=== PATIENT | male | born 1935 | race Caucasian/White ===

== ENCOUNTER 2016-05-27 03:43 | Inpatient (IN) | payer BC ==
--- NOTE | ~2016-05-27 | CN ---
Consultation Report [facility] [address] [facility] [place]. [address] NAME: VALENTE NAVA : 36 STATUS : ADM [facility]#: [id number] AGE: 80 ADM/REG DATE : 05/27/16 MR#: [id number] REPORT SERV DATE: 06/01/16 DICTATED BY: RAJI ZAPATA DATE: 06/01/16 REPORT STATUS : Draft TRANSCRIBED BY: NIDHI DATE: 06/01/16 DATE OF CONSULTATION: 06/01/2016 REFERRING PHYSICIAN: Roni Broussard M.D. REASON FOR THE VISIT: Heart failure. HISTORY OF PRESENT ILLNESS: Mr. Nava is a 80-year-old patient who is a long-time patient in our group for chronic atrial fibrillation and diastolic heart failure. He had a failed cardioversion within the last year or two. He is medically managed with Xarelto. Past ejection fractions have for the most part been within normal limits. He has presented to [facility] now with respiratory failure. He has pneumonia. He is on the ventilator, but he is awake. Echocardiogram performed this admission demonstrates ejection fraction 35%, which is new for him. PAST MEDICAL HISTORY: 1. Chronic diastolic heart failure. 2. Permanent atrial fibrillation. 3. History of COPD. 4. History of hyponatremia. 5. Low back pain. SOCIAL HISTORY: He is a nonsmoker. HOME MEDICATIONS: 1. Albuterol inhaler. 2. Cartia 240 mg daily. 3. Lasix 40 mg daily. 4. [place] as needed. 5. Potassium 10 mEq tablet daily. 6. Xarelto 20 mg every night with dinner. ALLERGIES: NO KNOWN DRUG ALLERGIES. REVIEW OF SYSTEMS: A ten-system review could not be asked secondary the patient's intubated status. PHYSICAL EXAMINATION: VITAL SIGNS: Temperature 99, heart rate 95, blood pressure 124/72. GENERAL: Mr. Nava is a well-developed man in no acute distress. He is a little sleepy, but overall he is awake and can answer yes or no questions for the most part. He does not appear to be in any distress. HEENT: Negative except that he is intubated. He does not appear dehydrated. NECK: Does not show JVD. LUNGS: Have some rhonchi bilaterally. Upper airway noises are heard. Consultation Report [place] [id number] [facility] [place]. [address] NAME: MINORVALENTE : 36 STATUS : ADM IN PAT#: [id number] AGE: 80 ADM/REG DATE : 05/27/16 MR#: [id number] REPORT SERV DATE: 06/01/16 DICTATED BY: RAJI ZAPATA DATE: 06/01/16 REPORT STATUS : Draft TRANSCRIBED BY: NIDHI DATE: 06/01/16 HEART: Tones are irregular, but not fast. No obvious murmur. ABDOMEN: Negative. He has good bowel sounds. EXTREMITIES: Shows minimal pitting edema. NEUROLOGIC: As above. He is awake and he can move all four extremities. SKIN: Shows some bruising. No rash. LABORATORY DATA: White blood cell count 14, hematocrit 34, and platelet count 241. Sodium 143, potassium 4.3, BUN 21, creatinine 0.5, and magnesium 2.3. His telemetry demonstrates atrial fibrillation with a controlled ventricular response. IMPRESSION: 1. Chronic atrial fibrillation. 2. New heart failure that appears to be an acute exacerbation of systolic heart failure. PLAN: At this time, there is not much change. He is on his home dose of Xarelto for blood thinning. Rate control is only needed p.r.n. He could be dosed with digoxin if needed secondary to the low blood pressures if his heart rate gets out of control. We can start him on his home Cardizem when his blood pressure is better. He is presently on a pressor to keep his blood pressure up, so we will not start a beta-jaciel or KAITLIN inhibitor at this time for his heart failure. He can be diuresed as needed. We will follow along with you. [facility]/NIDHI Raji Zapata M.D. / [id number] CC: Roni Broussard M.D.
--- NOTE | ~2016-05-27 | DS ---
Discharge Summary [facility] [address] [facility] [place]. [address] NAME: VALENTE COBB : 36 STATUS : DIS IN PAT#: [id number] AGE: 80 ADM/REG DATE : 05/27/16 MR#: [id number] REPORT SERV DATE: 06/21/16 DICTATED BY: BALDEV BEJARANO DATE: 06/19/16 REPORT STATUS : Draft TRANSCRIBED BY: MODL DATE: 06/19/16 ADMISSION DATE: 05/27/2016 DISCHARGE DATE: 06/19/2016 DISCHARGE DIAGNOSES: 1. Acute on chronic hypoxemic and hypercapnic respiratory failure. 2. Chronic systolic congestive heart failure. 3. Chronic atrial fibrillation. 4. Chronic use of anticoagulation, i.e., Xarelto. 5. Chronic anemia. 6. Encephalopathy, associated with present illness, now resolved. 7. Acute exacerbation of chronic obstructive pulmonary disease, currently treated. 8. Haemophilus influenza pneumonia, currently treated. 9. Hypertension with variable hypotension, medication adjusted. 10.Urinary retention with failed Chan catheter discontinuation x3. 11.Enterococcus faecalis urinary tract infection, to finish amoxicillin therapy for another five days. 12.Delirium, currently resolved. 13.Weakness and debility. CONSULTANTS DURING THIS HOSPITALIZATION: Dr. Raji Zapata of Cardiology and Dr. Emery of Cardiology. BRIEF HISTORY OF PRESENT ILLNESS: The patient is a 80-year-old male with the above history who presented to [facility] due to respiratory failure and pneumonia, requiring intubation. For detailed history and physical exam, please see note dictated by Dr. Roni Broussard from 05/27/2016. HOSPITAL COURSE: After being admitted to the hospital, this patient was in the intensive care unit. Please refer to interim summary dictated by Dr. Karl Yang on 06/02/2016. Then the patient was cared for by Dr. Son. Please refer to his interim summary dictated on 06/10/2016. Then, Dr. Conti took over this patient's care. Please refer to his interim summary dictated on 06/17/2016. I took over this patient's care on 06/18/2016. This patient was doing relatively well and stable, all consultants had signed off and rehab was recommended. We were awaiting family and insurance approval. Today, this patient has been approved to go to [facility] and family has agreed to go and do paperwork. This patient remained stable, otherwise and is being discharged in stable condition. DISCHARGE DISPOSITION: To senior care facility. DISCHARGE ACTIVITY: Per facility. DISCHARGE DIET: Low sodium, 1800-calorie [place] diet. DISCHARGE MEDICATIONS: Aspirin 81 mg once daily, Lipitor 40 mg once at bedtime, amiodarone 200 mg twice daily, Coreg 3.125 mg twice daily, digoxin 0.125 mg once daily, folic acid 1 mg Discharge Summary [address] [address] NAME: VALENTE COBB : 36 STATUS : DIS IN PAT#: [id number] AGE: 80 ADM/REG DATE : 05/27/16 MR#: [id number] REPORT SERV DATE: 06/21/16 DICTATED BY: BALDEV BEJARANO DATE: 06/19/16 REPORT STATUS : Draft TRANSCRIBED BY: NIDHI DATE: 06/19/16 once daily, Lasix 20 mg once daily, lisinopril 2.5 mg once daily, multivitamins one tablet daily, Protonix 40 mg once daily, potassium 10 mEq once daily, Xarelto 20 mg once daily, Flomax 0.4 mg once daily, Spiriva one capsule inhalation via HandiHaler once daily, Proventil 3 mL q.4 hours p.r.n. while awake. DISCHARGE FOLLOWUP: Follow up with primary care physician post rehab. More than 30 minutes spent planning this patient's discharge, reconciling medications, and signing all forms for rehab and documenting this discharge. ADDENDUM This patient was kept an extra day in the hospital because the family did not have time to go and sign his papers at the senior care facility. The son will go and sign papers today, and will make arrangement for the patient to be transported to senior care facility. No other changes have been made. He remained stable otherwise. ANTHONY/NIDHI Baldev Bejarano M.D. / [id number] / [id number] CC: Baldev Bejarano M.D.
--- NOTE | ~2016-05-27 | IDS ---
Interim Discharge Summary [facility] [address] [place]. [address] NAME: VALENTE COBB : 36 STATUS : ADM IN PAT#: [id number] AGE: 80 ADM/REG DATE : 05/27/16 MR#: [id number] REPORT SERV DATE: 06/02/16 DICTATED BY: FIDEL OLIVA DATE: 06/02/16 REPORT STATUS : Draft TRANSCRIBED BY: MODL DATE: 06/02/16 ADMISSION DATE: 05/27/2016 DISCHARGE DATE: DATE OF INTERIM SUMMARY: 06/02/2016. INTERIM DIAGNOSES: 1. Acute hypercapnic and hypoxic respiratory failure. 2. Acute chronic obstructive pulmonary disease exacerbation. 3. Haemophilus influenzae pneumonia. 4. Hyperactive delirium. 5. Systolic and diastolic heart failure. 6. Fever. ICU COURSE: Please see dictated H and P for full patient history and presentation. BRIEF SUMMARY: The patient is a 80-year-old gentleman with a past medical history of COPD, who presented with shortness of breath and hypercapnic hypoxic respiratory failure on the 05/28/2015, was intubated in the emergency room and sent to the CCU for management. Hospital course has been complicated by hyperactive delirium, apparent new diagnosis of systolic and diastolic heart failure as well as persistent fevers over the last few days. 1. Acute hypercapnic and hypoxic respiratory failure. The patient continues on the ventilator. We have weaned this down over the weekend. He has been doing CPAP trials and intermittently been doing well with these for the last couple of days. He continues to be on steroids and DuoNeb for his acute COPD exacerbation. Hopefully, he will continue to do well and be able to be liberated from the ventilator in the next couple of days. 2. H. flu pneumonia. Currently, the patient is on day #7 of Rocephin for this. 3. Hyperactive delirium. His ICU course was complicated by some hyperactive delirium, which has improved since we started Seroquel. We will continue providing daily awakening trial. 4. Systolic and diastolic heart failure. Echocardiogram at this hospitalization showed a new ejection fraction of 35%, which appears to be new. Cardiology is following the patient assisting. We have intermittently diuresed him as his blood pressure tolerates. 5. Fever. Over the last 48 hours or so, the patient has had a persistent fever. His procalcitonin has been negative and there is no new apparent source other than his pneumonia. I will get lower and upper extremity Dopplers today to look for DVT and then consider ID consult tomorrow if he continues to have persistent fevers. 6. The patient remains critically ill in the ICU. The oncoming neon pumper will take care of the patient starting tomorrow. Please call if you have any questions. AMOL/NIDHI Interim Discharge Summary [address] [place]. [address] NAME: VALENTE COBB : 36 STATUS : ADM IN [facility]#: [id number] AGE: 80 ADM/REG DATE : 05/27/16 MR#: [id number] REPORT SERV DATE: 06/02/16 DICTATED BY: FIDEL OLIVA DATE: 06/02/16 REPORT STATUS : Draft TRANSCRIBED BY: NIDHI DATE: 06/02/16 Fidel Oliva MD / [id number] CC: Roni Broussard M.D.
--- NOTE | ~2016-05-27 | IDS ---
Interim Discharge Summary [facility] [address] [place]. [address] NAME: VALENTE COBB : 36 STATUS : ADM IN PAT#: [id number] AGE: 80 ADM/REG DATE : 05/27/16 MR#: [id number] REPORT SERV DATE: 06/18/16 DICTATED BY: FIDEL CONTI DATE: 06/17/16 REPORT STATUS : Draft TRANSCRIBED BY: MODL DATE: 06/17/16 ADMISSION DATE: 05/27/2016 DISCHARGE DATE: Interim summary covers period 06/11/2016 through 06/17/2016. INTERIM SUMMARY DIAGNOSES: 1. Acute on chronic hypoxemic and hypercapnic respiratory failure. 2. Chronic systolic congestive heart failure. 3. Chronic atrial fibrillation. 4. Chronic Xarelto. 5. Chronic anemia. 6. Encephalopathy associated with present illness. 7. Acute exacerbation of COPD, treated. 8. Haemophilus influenzae, pneumonia treated. 9. Hypertension with variable hypotension, medications being adjusted. 10.Urinary retention, failed Chan catheter discontinuation x3. 11.Gram-positive chordee, vancomycin initiated. Culture pending. INTERIM SUMMARY: During this week, his respiratory status has improved. He is currently on 1 L of O2 or less per 24 hours without dyspnea or cough. A chest x-ray done on 325 showed improved pulmonary vascular congestion and bibasilar atelectasis compared to study of 06/10/2016. There has been no exacerbation of his chronic systolic congestive heart failure. His atrial fibrillation rate has been controlled on low-dose carvedilol, and he has had no evident mucosal bleeding on his chronic Xarelto with a stable hemoglobin. He has had some intermittent hypotension. This initially improved with discontinuation of Imdur and reduction in his carvedilol dose. It has recurred today, and his KAITLIN inhibitor therapy is being discontinued. He has had documented systolic pressures in the mid 80s and 90s without symptoms. He had some encephalopathy associated with his present illness when he was in the intensive care unit. He had been placed on Seroquel. When initially seen by the undersigned, there were some periods of confusion. In addition to the above mentioned medication adjustments, his Seroquel was tapered and discontinued. A CT scan of the brain was done, which showed no acute intracranial pathology with chronic right sphenoid sinus disease and stable moderate advanced diffuse cerebral involutional changes and mild deep white matter chronic microvascular ischemic changes. Over the course of this week, this confusion has resolved. He had a Chan catheter that was placed on admission. The catheter was discontinued. He had a significant postvoid residual. His catheter was reinserted. He was started on Flomax. After several days, his catheter was discontinued, but he again had a high residual and the catheter was reinserted. Interim Discharge Summary [address] [address] NAME: VALENTE COBB : 36 STATUS : ADM IN PAT#: [id number] AGE: 80 ADM/REG DATE : 05/27/16 MR#: [id number] REPORT SERV DATE: 06/18/16 DICTATED BY: FIDEL CONTI DATE: 06/17/16 REPORT STATUS : Draft TRANSCRIBED BY: NIDHI DATE: 06/17/16 On 06/15/2016, he developed a leukocytosis at 15.2, having been 9.9 on the 06/13/2016. He had no new findings on exam. A urinalysis done on that date showed some microscopic pyuria and hematuria. A culture was ordered, but not completed. A repeat urine was done on 06/16/2016 with similar findings. A culture is growing. Gram-positive cocci to be identified. Without the addition of antimicrobial therapy, his white count normalized. It is suspected he has a chordee. Vancomycin is being given today pending formal identification. His discharge to rehab has been delayed pending SNF rehab approval by [facility]. Care to be assumed by the hospitalist team in a.m. DD/NIDHI Fidel Conti M.D. / [id number] CC: Fidel Conti M.D.
--- NOTE | ~2016-05-27 | HP ---
History And Physical [place] [id number] [place]. [address] NAME: VALENTE NAVA : 36 STATUS : ADM IN [facility]#: [id number] AGE: 80 ADM/REG DATE : 05/27/16 MR#: [id number] REPORT SERV DATE: 05/27/16 DICTATED BY: SRIDHAR BROUSSARD DATE: 05/27/16 REPORT STATUS : Draft TRANSCRIBED BY: MODL DATE: 05/27/16 DATE OF ADMISSION: 05/27/2016 REASON FOR ADMISSION: Acute hypercapnic respiratory failure, pneumonia, respiratory failure requiring intubation. HISTORY: Mr. Nava is a 80-year-old man with a history of COPD. No previous admissions that I could find on the chart for this facility who was brought in by EMS because of decreased alertness, worsening cough, worsening dyspnea. In the emergency department, he was found to have significant hypercapnia and hypoxemia and a mildly elevated BNP as well. Significant chest congestion, decreased alertness and was intubated both because of airway protection as well as the hypercapnia. Upon intubation, he had significant amounts of purulent sputum coming up the T-tube but had no other problems noted. PAST MEDICAL HISTORY: Significant for COPD, hypertension. We do not have any family available at this time and no other documentation from this hospital. ALLERGIES: HE HAS NO KNOWN DRUG ALLERGIES. SOCIAL HISTORY: Significant for long history of tobacco abuse. No alcohol abuse. REVIEW OF SYSTEMS: Review of 10 systems could not be performed. PHYSICAL EXAMINATION: GENERAL: He is chronically ill-appearing, intubated on mechanical ventilation, sedated. HEENT: Normocephalic and atraumatic. NECK: Supple. No lymphadenopathy. No JVD. CHEST: Symmetrical with good expansion bilaterally. He has a prolonged expiratory phase. Occasional wheezes and rhonchi. CARDIOVASCULAR: He has S1 and S2 which are regular rate and rhythm. ABDOMEN: Benign. He has no edema. No clubbing. No cyanosis. ASSESSMENT AND PLAN: Acute exacerbation of chronic obstructive pulmonary disease. He had acute exacerbation of chronic obstructive pulmonary disease with pulmonary congestion and some early infiltrates. We will treat him with systemic steroids and antibiotics. He also has an elevated BNP. So we will get an echocardiogram since we do not have any data from cardiac function from previous hospitalizations and he is obviously at significant risk for cardiovascular disease. His oxygenation and hypercapnia are slowly improving on the ventilator. He will be on bronchodilator protocol and receive DVT and gastrointestinal prophylaxis. We will wait for family to become available to discuss disposition as well as goals of care. Care was discussed with the emergency department staff. History And Physical [address] [place]. [address] NAME: MINORVALENTE : 37 STATUS : ADM IN [facility]#: [id number] AGE: 80 ADM/REG DATE : 05/27/16 MR#: [id number] REPORT SERV DATE: 05/27/16 DICTATED BY: SRIDHAR BROUSSARD DATE: 05/27/16 REPORT STATUS : Draft TRANSCRIBED BY: NIDHI DATE: 05/27/16 MORGAN/NIDHI Sridhar Broussard M.D. / [id number] CC: Sridhar Broussard M.D.
--- NOTE | ~2016-05-27 | CN ---
Consultation Report [facility] [address] [facility] [place]. [address] NAME: MINORVALENTE : 36 STATUS : ADM IN [facility]#: [id number] AGE: 80 ADM/REG DATE : 05/27/16 MR#: [id number] REPORT SERV DATE: 05/31/16 DICTATED BY: FIDEL EMERY DATE: 05/31/16 REPORT STATUS : Draft TRANSCRIBED BY: MODMercedez DATE: 05/31/16 CARDIOLOGY CONSULTATION. DATE OF CONSULTATION: REFERRING PHYSICIAN: Critical Care Medicine. REASON FOR EVALUATION: Heart failure. HISTORY: The patient is a 80-year-old white male, who has a history of chronic atrial fibrillation for which he is on Xarelto, COPD, and chronic diastolic heart failure. He last had an echocardiogram, 04/11/2004, with his EF at that point of 55%. He had mild mitral and tricuspid valve regurgitation and concentric LVH. The patient had developed significant hypercapnia and hypoxemia with worsening cough and dyspnea. He was intubated by Critical Care; at which point, he was noted to have copious amounts of purulent sputum coming up his T-tube. He is presently sedated and on ventilatory support. MEDICATIONS: Current home medications are albuterol inhaler, diltiazem 240 a day, furosemide 40 a day, hydrocodone/APAP 7.5/325 a day, potassium 10 per day, and Rivaroxaban 20 a day with supper. ALLERGIES OR INTOLERANCES: None. FAMILY HISTORY: Father of cirrhosis at age 49. Mother had a stroke. SOCIAL HISTORY: Significant for a long history of tobacco use. PAST MEDICAL HISTORY/REVIEW OF SYSTEMS: Positive for COPD and hypertension as well as the above cardiac history. He has had a previous history of hyponatremia and his chronic lower back pain for which he is on pain medications. PHYSICAL EXAMINATION: GENERAL: A 80-year-old white male, who is presently intubated and appropriately sedated. VITAL SIGNS: Blood pressure 123/75, pulse 82 and irregular, and respirations 12. SKIN: No xanthelasmas. HEENT: Normocephalic. ET tube is in place. CHEST: There are bilateral crackles. CARDIAC: S1 variable, S2 singular. No overt murmurs. ABDOMEN: Without tenderness. EXTREMITIES: Without edema. No clubbing. NEUROLOGIC: No focal deficits. LABORATORY DATA: EKG shows atrial fibrillation, no acute repolarization changes present. Consultation Report [place] [id number] [facility] [place]. [address] NAME: VALENTE COBB : 36 STATUS : ADM IN PAT#: [id number] AGE: 80 ADM/REG DATE : 05/27/16 MR#: [id number] REPORT SERV DATE: 05/31/16 DICTATED BY: FIDEL EMERY DATE: 05/31/16 REPORT STATUS : Draft TRANSCRIBED BY: MODL DATE: 05/31/16 Echocardiogram shows borderline LV size with moderate decrease in systolic function, EF 35%. There is severe diastolic dysfunction and severe left atrial enlargement. There was atrial aortic valve sclerosis without stenosis. Chest x-ray shows bilateral pulmonary congestion. BUN 21, creatinine 0.4, BNP 603, white count 12, and hemoglobin 11.1. IMPRESSION: Combined acute systolic/diastolic failure with possible pneumonic inflammatory/infectious process. He is on appropriate therapy at this time. Antibiotics will be deferred to the Critical Care Team. In reviewing his outside records, he actually is a patient of Dr. Preston, and I have suggested that they be contacted for further management and therapy. DW/MODL Fidel Emery M.D. / [id number] CC: Kermit Gibbons M.D. Robert Drake, M.D. Theodore Richards, M.D. [facility]
--- NOTE | ~2016-05-27 | IDS ---
Interim Discharge Summary [facility] [address] [place]. [address] NAME: VALENTE COBB : 37 STATUS : ADM IN [facility]#: [id number] AGE: 80 ADM/REG DATE : 05/27/16 MR#: [id number] REPORT SERV DATE: 06/10/16 DICTATED BY: ROSITA GRANADOSDEVIN ALYSE DATE: 06/10/16 REPORT STATUS : Draft TRANSCRIBED BY: MODL DATE: 06/10/16 ADMISSION DATE: 05/27/2016 DISCHARGE DATE: DATE OF INTERIM: 06/10/2016. DIAGNOSES: 1. Acute on chronic hypoxic and hypercapnic respiratory failure. 2. Acute exacerbation of chronic obstructive pulmonary disease. 3. Haemophilus influenzae pneumonia. 4. Chronic systolic and diastolic congestive heart failure with EF of 35%. 5. Atrial fibrillation, on Xarelto. 6. Delirium. 7. Weakness and debility. 8. Hypotension. CONSULTS: Dr. Raji Zapata with Cardiology and Dr. Emery with cardiology. BRIEF HISTORY OF PRESENT ILLNESS: The patient is a 80-year-old male, with the above history who presented to [facility], due to respiratory failure and pneumonia requiring intubation. For detailed history and physical examination, please see Dr. Broussard's note from 05/27/2016. HOSPITAL COURSE: For details of the patient's ICU stay, please see Dr. Yang's interim summary from 06/02/2016. In brief, the patient was admitted to the ICU for acute respiratory failure and found to have an H flu pneumonia for which he finished a seven-day course of Rocephin. He was able to be weaned off the ventilator and subsequently transitioned out of the ICU. The chest x-ray on admission showed pulmonary venous hypertension with mild interstitial edema. Current chest x-ray shows perihilar and bibasilar infiltrates, and atelectasis which is improving compared to 06/06/2016. Regarding his systolic and diastolic congestive heart failure, an echocardiogram on admission showed a new ejection fraction of 35%, and the patient has responded well to diuresis. Currently, he is on amiodarone, carvedilol, and digoxin for atrial fibrillation, and Lasix and lisinopril. He has had difficulty with hypotension when his amiodarone was q.6 hours and has been made b.i.d. His Coreg has also been decreased to 6.25. At this point, his oxygen requirement is only 1 L by nasal cannula. His lungs are clear, and is being doing well. He did develop delirium in the ICU after coming off the ventilator, and has been very confused, not himself per family. The patient answers appropriately when asked about his own symptoms, however, he is unable to maintain awareness of his current surroundings. Otherwise, he is noncombative and fairly pleasant. PT has evaluated him and recommended SNF. Hopefully, this will be approved soon and the patient is otherwise stable for discharge. Dr. Karl Conti will take over the patient's care starting tomorrow. Interim Discharge Summary [address] [address] NAME: VALENTE COBB : 37 STATUS : ADM IN [facility]#: [id number] AGE: 80 ADM/REG DATE : 05/27/16 MR#: [id number] REPORT SERV DATE: 06/10/16 DICTATED BY: DEVIN BECKER II DATE: 06/10/16 REPORT STATUS : Draft TRANSCRIBED BY: NIDHI DATE: 06/10/16 URSULA/NIDHI Devin Becker II, MD / [id number] CC: Roni Broussard M.D.
[2016-05-27 02:33] LABS: BE (BASE EXCESS) 3.4 MEQ/L (0 +/- 2.5); DEVICE NRB; HCO3 (ACTUAL BICARBONATE) 33.9 MEQ/L (23-27); HEMOBLOGIN CONTENT 12.2 G/DL (14-18); INSTRUMENT SERIAL # 8087; METHEMOGLOBIN 0.5 % (0-3); O2 CONTENT 15.6 VOL% (18-24); PCO2 (CO2 TENSION) 89 MMHG (35-45); PO2 (O2 TENSION) 75 MMHG (79-93); SAMPLE Arterial
[2016-05-27 03:14] LABS: BASOPHILS 0.2 %; BASOPHILS ABSOLUTE 0.03 10/3/uL (0.0-0.16); EOSINOPHILS 0 %; HEMATOCRIT 36.8 % (40.0-51.0); HEMOGLOBIN 11.2 g/dL (13.6-17.8); IMMATURE GRANULOCYTES 0.1 %; IMMATURE GRANULOCYTES ABSOLUTE 0.02 10/3/uL (0.0-0.11); LYMPHOCYTES 12.7 %; LYMPHOCYTES ABSOLUTE 1.75 10/3/uL (0.67-4.30); MEAN CORPUSCULAR HEMOGLOB 28.4 pg (26.0-34.0); MEAN PLATELET VOLUME 9.8 fL (9.2-13.0); MONOCYTES 7.3 %; MONOCYTES ABSOLUTE 1.01 10/3/uL (0.21-1.20); NEUTROPHILS 79.7 %; NEUTROPHILS ABSOLUTE 10.99 10/3/uL (2.02-8.40); RBC DISTRIBUTION WIDTH 14.6 % (12.0-16.0); RED CELL COUNT 3.95 10/6/uL (4.7-6.1)
[2016-05-27 03:15] LABS: MANUAL DIFF NO %; MEAN CORPUS HGB CONC 30.4 g/dL (32.0-36.0); MEAN CORPUSCULAR VOLUME 93.2 fL (80-100); PLATELET COUNT 311 10/3/uL (150-400); WHITE BLOOD CELLS 13.8 10/3/uL (4.5-10.5)
[2016-05-27 03:21] LABS: INTERNATIONAL NORMAL RATI 1.4 UNITS (-); PARTIAL THROMBO TIME 38.1 SEC (22.5-37.2); PROTIME (NOT ORD) 17.2 SEC (12.0-14.5)
[2016-05-27 03:23] LABS: INFLUENZA A SCREEN NEGATIVE (NEGATIVE); INFLUENZA B SCREEN NEGATIVE (NEGATIVE)
[2016-05-27 03:31] LABS: LACTATE 0.9 MMOL/L (0.3-2.4)
[2016-05-27 03:32] LABS: ALBUMIN 3.4 G/DL (3.5-5.0); CALCIUM, SERUM 8.4 MG/DL (8.5-10.4); CHLORIDE, SERUM 99 MMOL/L (96-112); CREATININE 0.64 MG/DL (0.70-1.30); GFR AFRICAN AMERICAN 108 ML/MIN (>=60); GFR NON AFRICAN AMERICAN 93 ML/MIN (>=60); SGOT(AST) 17 U/L (5-40); SGPT(ALT) 18 U/L (5-65); TOTAL PROTEIN 7.5 G/DL (6.0-8.5); TROPONIN I <0.02 NG/ML (<0.05)
[2016-05-27 03:33] LABS: A/G RATIO 0.8 (0.7-1.9); ALKALINE PHOSPHATASE 72 U/L (45-117); BUN (BLOOD UREA NITROGEN) 16 MG/DL (6-23); CO2 (CARBON DIOXIDE) 37 MMOL/L (24-34); GLOBULIN 4.1 G/DL (2.5-4.1); GLUCOSE, SERUM 147 MG/DL (60-99); SODIUM, SERUM 143 MMOL/L (135-148); TOTAL BILIRUBIN 0.6 MG/DL (0-1.2)
[~2016-05-27 03:43] MED LIST: LAN25 PO; MOBIC7.5 PO; NORCO1 TA2 PO; PACERONE200 MG PO; ZOCOR40 PO
[2016-05-27 04:28] LABS: ALLENS TEST Pos; BE (BASE EXCESS) 5.8 MEQ/L (0 +/- 2.5); BIPAP 18/6 cm.H2O; CARBOXYHEMOGLOBIN 1.7 % (0-3); HCO3 (ACTUAL BICARBONATE) 35.8 MEQ/L (23-27); HEMOBLOGIN CONTENT 11.3 G/DL (14-18); INSTRUMENT SERIAL # 8087; METHEMOGLOBIN 0.3 % (0-3); O2 CONTENT 13.6 VOL% (18-24); PCO2 (CO2 TENSION) 88 MMHG (35-45); PO2 (O2 TENSION) 58 MMHG (79-93); SAMPLE Arterial; pH 7.23 (7.37-7.43)
[2016-05-27 10:57] LABS: CK-MB 1.7 NG/ML; CPK 57 U/L (0-200); FOLATE 14.6 NG/ML (>5.2); FREE T4 1.05 NG/DL (0.76-1.46); TROPONIN I <0.02 NG/ML (<0.05); ULTRASENSITIVE TSH 0.861 MCIU/ML (0.358-3.740)
[2016-05-27] MEDS ORDERED: ALBUTEROL0.083 % INH (12:11)
[2016-05-27] MEDS ORDERED: NORCO1 TA2 PO (12:11)
[2016-05-27] MEDS ORDERED: XARELTO20 MG PO (12:11)
[2016-05-27] MEDS ORDERED: MICRO-K10 MEQ PO (12:12)
[2016-05-27] MEDS ORDERED: L40 PO (12:12)
[2016-05-27] MEDS ORDERED: CARTIA XT240 MG/24 PO (12:14)
[2016-05-27 13:01] LABS: ALLENS TEST Pos; BE (BASE EXCESS) 3.8 MEQ/L (0 +/- 2.5); CARBOXYHEMOGLOBIN 0.3 % (0-3); HCO3 (ACTUAL BICARBONATE) 30.4 MEQ/L (23-27); HEMOBLOGIN CONTENT 10.8 G/DL (14-18); INSTRUMENT SERIAL # 35151; METHEMOGLOBIN 0.7 % (0-3); O2 CONTENT 15.2 VOL% (18-24); PCO2 (CO2 TENSION) 56 MMHG (35-45); PO2 (O2 TENSION) 165 MMHG (79-93); SAMPLE Arterial; TIDAL VOLUME 500 ML; pH 7.35 (7.37-7.43)
[2016-05-27 14:28] LABS: ASCORBIC ACID (UR NOT ORDER) 40 (NEG); BILIRUBIN, URINE NEGATIVE (NEG); KETONE, URINE NEGATIVE (NEG); LEUKOCYTE ESTERASE(NOT OR NEG (NEG); WBC (NOT ORDERED) (RFLEX) 2 (0-5)
[2016-05-28 04:07] LABS: BASOPHILS 0.1 %; BASOPHILS ABSOLUTE 0.01 10/3/uL (0.0-0.16); EOSINOPHILS 0 %; HEMATOCRIT 33.5 % (40.0-51.0); HEMOGLOBIN 10.4 g/dL (13.6-17.8); IMMATURE GRANULOCYTES 0.4 %; IMMATURE GRANULOCYTES ABSOLUTE 0.03 10/3/uL (0.0-0.11); LYMPHOCYTES 10.5 %; LYMPHOCYTES ABSOLUTE 0.87 10/3/uL (0.67-4.30); MEAN CORPUSCULAR HEMOGLOB 28.7 pg (26.0-34.0); MEAN CORPUSCULAR VOLUME 92.5 fL (80-100); MEAN PLATELET VOLUME 10.4 fL (9.2-13.0); MONOCYTES ABSOLUTE 0.41 10/3/uL (0.21-1.20); NEUTROPHILS ABSOLUTE 6.93 10/3/uL (2.02-8.40); PLATELET COUNT 220 10/3/uL (150-400); RBC DISTRIBUTION WIDTH 14.6 % (12.0-16.0); RED CELL COUNT 3.62 10/6/uL (4.7-6.1); WHITE BLOOD CELLS 8.3 10/3/uL (4.5-10.5)
[2016-05-28 04:08] LABS: MANUAL DIFF NO %
[2016-05-28 04:26] LABS: CALCIUM, SERUM 8.4 MG/DL (8.5-10.4); CHLORIDE, SERUM 105 MMOL/L (96-112); CREATININE 0.58 MG/DL (0.70-1.30); GFR AFRICAN AMERICAN 112 ML/MIN (>=60); GFR NON AFRICAN AMERICAN 97 ML/MIN (>=60); GLUCOSE, SERUM 142 MG/DL (60-99); PHOSPHORUS, SERUM 2.4 MG/DL (2.5-4.5); POTASSIUM, SERUM 4.8 MMOL/L (3.5-5.3); SGOT(AST) 9 U/L (5-40); SGPT(ALT) 14 U/L (5-65); SODIUM, SERUM 140 MMOL/L (135-148); TOTAL BILIRUBIN 0.2 MG/DL (0-1.2)
[2016-05-28 04:33] LABS: A/G RATIO 0.8 (0.7-1.9); ALBUMIN 2.6 G/DL (3.5-5.0); ALKALINE PHOSPHATASE 58 U/L (45-117); BUN (BLOOD UREA NITROGEN) 27 MG/DL (6-23); CO2 (CARBON DIOXIDE) 30 MMOL/L (24-34); GLOBULIN 3.3 G/DL (2.5-4.1); TOTAL PROTEIN 5.9 G/DL (6.0-8.5)
[2016-05-28 17:15] LABS: A/G RATIO 0.8 (0.7-1.9); ALBUMIN 2.5 G/DL (3.5-5.0); ALKALINE PHOSPHATASE 57 U/L (45-117); BUN (BLOOD UREA NITROGEN) 30 MG/DL (6-23); CALCIUM, SERUM 8.2 MG/DL (8.5-10.4); CHLORIDE, SERUM 103 MMOL/L (96-112); CO2 (CARBON DIOXIDE) 29 MMOL/L (24-34); GFR AFRICAN AMERICAN 111 ML/MIN (>=60); GFR NON AFRICAN AMERICAN 96 ML/MIN (>=60); GLOBULIN 3.3 G/DL (2.5-4.1); GLUCOSE, SERUM 129 MG/DL (60-99); PREALBUMIN 11.1 MG/DL (17.0-43.0); SGOT(AST) 10 U/L (5-40); SGPT(ALT) 12 U/L (5-65); SODIUM, SERUM 140 MMOL/L (135-148); TOTAL BILIRUBIN 0.2 MG/DL (0-1.2); TOTAL PROTEIN 5.8 G/DL (6.0-8.5)
[2016-05-29 05:07] LABS: BASOPHILS 0.1 %; BASOPHILS ABSOLUTE 0.01 10/3/uL (0.0-0.16); EOSINOPHILS 0 %; HEMATOCRIT 34.6 % (40.0-51.0); IMMATURE GRANULOCYTES 0.6 %; IMMATURE GRANULOCYTES ABSOLUTE 0.06 10/3/uL (0.0-0.11); LYMPHOCYTES 10.2 %; MEAN CORPUS HGB CONC 31.8 g/dL (32.0-36.0); MEAN CORPUSCULAR HEMOGLOB 28.9 pg (26.0-34.0); MEAN CORPUSCULAR VOLUME 90.8 fL (80-100); MEAN PLATELET VOLUME 9.7 fL (9.2-13.0); MONOCYTES 5.3 %; MONOCYTES ABSOLUTE 0.52 10/3/uL (0.21-1.20); NEUTROPHILS 83.8 %; NEUTROPHILS ABSOLUTE 8.21 10/3/uL (2.02-8.40); PLATELET COUNT 219 10/3/uL (150-400); RBC DISTRIBUTION WIDTH 14.4 % (12.0-16.0); RED CELL COUNT 3.81 10/6/uL (4.7-6.1); WHITE BLOOD CELLS 9.8 10/3/uL (4.5-10.5)
[2016-05-29 05:10] LABS: MANUAL DIFF NO %
[2016-05-29 05:20] LABS: CALCIUM, SERUM 8.1 MG/DL (8.5-10.4); CHLORIDE, SERUM 99 MMOL/L (96-112); CO2 (CARBON DIOXIDE) 30 MMOL/L (24-34); GFR AFRICAN AMERICAN 119 ML/MIN (>=60); GFR NON AFRICAN AMERICAN 103 ML/MIN (>=60); GLUCOSE, SERUM 149 MG/DL (60-99); POTASSIUM, SERUM 4.5 MMOL/L (3.5-5.3); SODIUM, SERUM 138 MMOL/L (135-148)
[2016-05-29 05:21] LABS: BUN (BLOOD UREA NITROGEN) 23 MG/DL (6-23)
[2016-05-30 04:06] LABS: BASOPHILS 0.2 %; BASOPHILS ABSOLUTE 0.02 10/3/uL (0.0-0.16); EOSINOPHILS 0 %; HEMATOCRIT 36.9 % (40.0-51.0); HEMOGLOBIN 11.5 g/dL (13.6-17.8); IMMATURE GRANULOCYTES 1.2 %; IMMATURE GRANULOCYTES ABSOLUTE 0.13 10/3/uL (0.0-0.11); LYMPHOCYTES 10.5 %; LYMPHOCYTES ABSOLUTE 1.14 10/3/uL (0.67-4.30); MEAN CORPUS HGB CONC 31.2 g/dL (32.0-36.0); MEAN CORPUSCULAR HEMOGLOB 27.6 pg (26.0-34.0); MEAN CORPUSCULAR VOLUME 88.7 fL (80-100); MEAN PLATELET VOLUME 10.1 fL (9.2-13.0); MONOCYTES 6.3 %; MONOCYTES ABSOLUTE 0.69 10/3/uL (0.21-1.20); NEUTROPHILS 81.8 %; NEUTROPHILS ABSOLUTE 8.92 10/3/uL (2.02-8.40); PLATELET COUNT 258 10/3/uL (150-400); RBC DISTRIBUTION WIDTH 14.6 % (12.0-16.0); RED CELL COUNT 4.16 10/6/uL (4.7-6.1); WHITE BLOOD CELLS 10.9 10/3/uL (4.5-10.5)
[2016-05-30 04:07] LABS: MANUAL DIFF NO %
[2016-05-30 04:19] LABS: BUN (BLOOD UREA NITROGEN) 25 MG/DL (6-23); CALCIUM, SERUM 7.9 MG/DL (8.5-10.4); CHLORIDE, SERUM 102 MMOL/L (96-112); CO2 (CARBON DIOXIDE) 33 MMOL/L (24-34); GFR AFRICAN AMERICAN 119 ML/MIN (>=60); GFR NON AFRICAN AMERICAN 103 ML/MIN (>=60); GLUCOSE, SERUM 175 MG/DL (60-99); POTASSIUM, SERUM 3.9 MMOL/L (3.5-5.3); SODIUM, SERUM 143 MMOL/L (135-148)
[2016-05-31 05:37] LABS: BASOPHILS 0.3 %; BASOPHILS ABSOLUTE 0.04 10/3/uL (0.0-0.16); EOSINOPHILS 0 %; HEMATOCRIT 34.6 % (40.0-51.0); HEMOGLOBIN 11.1 g/dL (13.6-17.8); IMMATURE GRANULOCYTES 4.2 %; LYMPHOCYTES 9.9 %; LYMPHOCYTES ABSOLUTE 1.19 10/3/uL (0.67-4.30); MEAN CORPUS HGB CONC 32.1 g/dL (32.0-36.0); MEAN CORPUSCULAR HEMOGLOB 28.8 pg (26.0-34.0); MEAN CORPUSCULAR VOLUME 89.6 fL (80-100); MEAN PLATELET VOLUME 9.9 fL (9.2-13.0); MONOCYTES 7.2 %; MONOCYTES ABSOLUTE 0.86 10/3/uL (0.21-1.20); NEUTROPHILS 78.4 %; NEUTROPHILS ABSOLUTE 9.43 10/3/uL (2.02-8.40); PLATELET COUNT 228 10/3/uL (150-400); RBC DISTRIBUTION WIDTH 14.4 % (12.0-16.0); RED CELL COUNT 3.86 10/6/uL (4.7-6.1)
[2016-05-31 05:38] LABS: CALCIUM, SERUM 8.2 MG/DL (8.5-10.4); CHLORIDE, SERUM 104 MMOL/L (96-112); CO2 (CARBON DIOXIDE) 32 MMOL/L (24-34); GFR AFRICAN AMERICAN 131 ML/MIN (>=60); GFR NON AFRICAN AMERICAN 113 ML/MIN (>=60); PHOSPHORUS, SERUM 2.4 MG/DL (2.5-4.5); SODIUM, SERUM 143 MMOL/L (135-148)
[2016-05-31 05:40] LABS: BUN (BLOOD UREA NITROGEN) 21 MG/DL (6-23); GLUCOSE, SERUM 212 MG/DL (60-99)
[2016-05-31 05:44] LABS: MANUAL DIFF NO %
[2016-06-01 08:38] LABS: HEMOGLOBIN 10.8 g/dL (13.6-17.8); MEAN CORPUS HGB CONC 31.8 g/dL (32.0-36.0); MEAN CORPUSCULAR HEMOGLOB 28.9 pg (26.0-34.0); MEAN CORPUSCULAR VOLUME 90.9 fL (80-100); MEAN PLATELET VOLUME 10.1 fL (9.2-13.0); PLATELET COUNT 241 10/3/uL (150-400); RBC DISTRIBUTION WIDTH 14.6 % (12.0-16.0); RED CELL COUNT 3.74 10/6/uL (4.7-6.1); WHITE BLOOD CELLS 14.1 10/3/uL (4.5-10.5)
[2016-06-01 08:42] LABS: MANUAL DIFF YES %
[2016-06-01 08:44] LABS: BUN (BLOOD UREA NITROGEN) 21 MG/DL (6-23); CALCIUM, SERUM 7.7 MG/DL (8.5-10.4); CHLORIDE, SERUM 103 MMOL/L (96-112); CO2 (CARBON DIOXIDE) 35 MMOL/L (24-34); CREATININE 0.47 MG/DL (0.70-1.30); GFR AFRICAN AMERICAN 123 ML/MIN (>=60); GFR NON AFRICAN AMERICAN 106 ML/MIN (>=60); POTASSIUM, SERUM 4.3 MMOL/L (3.5-5.3); SODIUM, SERUM 143 MMOL/L (135-148)
[2016-06-01 08:45] LABS: GLUCOSE, SERUM 138 MG/DL (60-99); PHOSPHORUS, SERUM 3.4 MG/DL (2.5-4.5)
[2016-06-01 09:41] LABS: BAND NEUTROPHILS 7 %; EOSINOPHILS 1 %; EOSINOPHILS ABSOLUTE (CALC) 0.14 10/3/uL (0.0-0.53); HYPOCHROMIA 1+ (3-10/OIF) (0-2/OIF); IMMATURE GRANS ABSOLUTE (CALC) 0.85 10/3/uL (0.0-0.11); LYMPHOCYTES 13 %; LYMPHOCYTES ABSOLUTE (CALC) 1.83 10/3/uL (0.67-4.30); METAMYELOCYTES 5 %; MONOCYTES 6 %; MONOCYTES ABSOLUTE (CALC) 0.85 10/3/uL (0.21-1.20); MYELOCYTES 1 %; NEUTROPHILS ABSOLUTE (CALC) 10.43 10/3/uL (2.02-8.40); PLATELET ESTIMATE ADQ (ADEQUATE); POLYCHROMASIA 1+ (2-5/OIF) (0-1/OIF); SEGMENTED NEUTROPHIL (0) 67 %; TOTAL NUCLEATED CELLS 100
[2016-06-01 09:42] LABS: HELMET CELLS OCC (0-2/OIF); TEARDROP SHAPED RBCS OCC (0-2/OIF); TOXIC GRANULATION SLT; VACUOLATED NEUTROPHILES OCC
[2016-06-01 11:00] LABS: ASCORBIC ACID (UR NOT ORDER) 40 (NEG); BILIRUBIN, URINE NEGATIVE (NEG); KETONE, URINE NEGATIVE (NEG); LEUKOCYTE ESTERASE(NOT OR NEG (NEG); WBC (NOT ORDERED) (RFLEX) 1 (0-5)
[2016-06-02 04:22] LABS: HEMATOCRIT 35.3 % (40.0-51.0); MEAN CORPUS HGB CONC 31.2 g/dL (32.0-36.0); MEAN CORPUSCULAR HEMOGLOB 27.8 pg (26.0-34.0); MEAN CORPUSCULAR VOLUME 89.4 fL (80-100); MEAN PLATELET VOLUME 10.3 fL (9.2-13.0); PLATELET COUNT 241 10/3/uL (150-400); RBC DISTRIBUTION WIDTH 14.4 % (12.0-16.0); RED CELL COUNT 3.95 10/6/uL (4.7-6.1); WHITE BLOOD CELLS 12.3 10/3/uL (4.5-10.5)
[2016-06-02 04:35] LABS: CALCIUM, SERUM 7.7 MG/DL (8.5-10.4); CHLORIDE, SERUM 101 MMOL/L (96-112); CO2 (CARBON DIOXIDE) 33 MMOL/L (24-34); CREATININE 0.48 MG/DL (0.70-1.30); GFR AFRICAN AMERICAN 121 ML/MIN (>=60); GFR NON AFRICAN AMERICAN 105 ML/MIN (>=60); MANUAL DIFF YES %; PHOSPHORUS, SERUM 3.3 MG/DL (2.5-4.5); POTASSIUM, SERUM 5.1 MMOL/L (3.5-5.3); SODIUM, SERUM 142 MMOL/L (135-148)
[2016-06-02 04:37] LABS: BUN (BLOOD UREA NITROGEN) 25 MG/DL (6-23); GLUCOSE, SERUM 229 MG/DL (60-99)
[2016-06-02 05:33] LABS: BAND NEUTROPHILS 4 %; HELMET CELLS OCC (0-2/OIF); IMMATURE GRANS ABSOLUTE (CALC) 0.49 10/3/uL (0.0-0.11); LYMPHOCYTES 8 %; LYMPHOCYTES ABSOLUTE (CALC) 0.98 10/3/uL (0.67-4.30); METAMYELOCYTES 3 %; MONOCYTES 4 %; MONOCYTES ABSOLUTE (CALC) 0.49 10/3/uL (0.21-1.20); MYELOCYTES 1 %; NEUTROPHILS ABSOLUTE (CALC) 10.33 10/3/uL (2.02-8.40); PLATELET ESTIMATE ADQ (ADEQUATE); SEGMENTED NEUTROPHIL (0) 80 %; TOTAL NUCLEATED CELLS 100
[2016-06-02 05:34] LABS: POLYCHROMASIA 1+ (2-5/OIF) (0-1/OIF); TEARDROP SHAPED RBCS OCC (0-2/OIF)
[2016-06-03 03:54] LABS: BASOPHILS 0.2 %; BASOPHILS ABSOLUTE 0.03 10/3/uL (0.0-0.16); EOSINOPHILS 0 %; HEMATOCRIT 33.2 % (40.0-51.0); HEMOGLOBIN 10.1 g/dL (13.6-17.8); LYMPHOCYTES 7.1 %; LYMPHOCYTES ABSOLUTE 1.08 10/3/uL (0.67-4.30); MEAN CORPUS HGB CONC 30.4 g/dL (32.0-36.0); MEAN CORPUSCULAR HEMOGLOB 27.7 pg (26.0-34.0); MEAN PLATELET VOLUME 10.4 fL (9.2-13.0); MONOCYTES 4.4 %; MONOCYTES ABSOLUTE 0.68 10/3/uL (0.21-1.20); NEUTROPHILS 86.3 %; NEUTROPHILS ABSOLUTE 13.22 10/3/uL (2.02-8.40); PLATELET COUNT 255 10/3/uL (150-400); RBC DISTRIBUTION WIDTH 14.5 % (12.0-16.0); RED CELL COUNT 3.65 10/6/uL (4.7-6.1); WHITE BLOOD CELLS 15.3 10/3/uL (4.5-10.5)
[2016-06-03 03:55] LABS: MANUAL DIFF NO %
[2016-06-03 04:00] LABS: BUN (BLOOD UREA NITROGEN) 22 MG/DL (6-23); CALCIUM, SERUM 7.9 MG/DL (8.5-10.4); CHLORIDE, SERUM 102 MMOL/L (96-112); CO2 (CARBON DIOXIDE) 33 MMOL/L (24-34); GFR AFRICAN AMERICAN 131 ML/MIN (>=60); GFR NON AFRICAN AMERICAN 113 ML/MIN (>=60); GLUCOSE, SERUM 163 MG/DL (60-99); SODIUM, SERUM 140 MMOL/L (135-148)
[2016-06-04 05:00] LABS: BASOPHILS 0.1 %; BASOPHILS ABSOLUTE 0.02 10/3/uL (0.0-0.16); EOSINOPHILS 0 %; HEMATOCRIT 36.1 % (40.0-51.0); HEMOGLOBIN 11.3 g/dL (13.6-17.8); IMMATURE GRANULOCYTES 2.3 %; IMMATURE GRANULOCYTES ABSOLUTE 0.44 10/3/uL (0.0-0.11); LYMPHOCYTES 6.8 %; LYMPHOCYTES ABSOLUTE 1.32 10/3/uL (0.67-4.30); MEAN CORPUS HGB CONC 31.3 g/dL (32.0-36.0); MEAN CORPUSCULAR HEMOGLOB 28.9 pg (26.0-34.0); MEAN CORPUSCULAR VOLUME 92.3 fL (80-100); MONOCYTES ABSOLUTE 0.59 10/3/uL (0.21-1.20); NEUTROPHILS 87.8 %; NEUTROPHILS ABSOLUTE 17.09 10/3/uL (2.02-8.40); PLATELET COUNT 236 10/3/uL (150-400); RBC DISTRIBUTION WIDTH 14.2 % (12.0-16.0); RED CELL COUNT 3.91 10/6/uL (4.7-6.1); WHITE BLOOD CELLS 19.5 10/3/uL (4.5-10.5)
[2016-06-04 05:01] LABS: MANUAL DIFF NO %
[2016-06-04 05:13] LABS: BUN (BLOOD UREA NITROGEN) 23 MG/DL (6-23); CALCIUM, SERUM 7.8 MG/DL (8.5-10.4); CHLORIDE, SERUM 99 MMOL/L (96-112); CO2 (CARBON DIOXIDE) 31 MMOL/L (24-34); CREATININE 0.39 MG/DL (0.70-1.30); GFR AFRICAN AMERICAN 132 ML/MIN (>=60); GFR NON AFRICAN AMERICAN 114 ML/MIN (>=60); PHOSPHORUS, SERUM 3.2 MG/DL (2.5-4.5); SODIUM, SERUM 139 MMOL/L (135-148)
[2016-06-04 05:15] LABS: GLUCOSE, SERUM 126 MG/DL (60-99)
[2016-06-04 12:16] LABS: PROCALCITONIN <0.05 ng/mL (<0.5)
[2016-06-04 16:20] LABS: WBC (NOT ORDERED) (RFLEX) 0 (0-5)
[2016-06-04 16:49] LABS: ASCORBIC ACID (UR NOT ORDER) 40 (NEG); BILIRUBIN, URINE NEGATIVE (NEG); KETONE, URINE NEGATIVE (NEG); LEUKOCYTE ESTERASE(NOT OR NEG (NEG)
[2016-06-05 05:13] LABS: BASOPHILS 0.1 %; BASOPHILS ABSOLUTE 0.02 10/3/uL (0.0-0.16); EOSINOPHILS 0 %; HEMATOCRIT 33.3 % (40.0-51.0); HEMOGLOBIN 10.7 g/dL (13.6-17.8); IMMATURE GRANULOCYTES 1.8 %; LYMPHOCYTES 9.5 %; LYMPHOCYTES ABSOLUTE 1.55 10/3/uL (0.67-4.30); MEAN CORPUS HGB CONC 32.1 g/dL (32.0-36.0); MEAN CORPUSCULAR HEMOGLOB 28.8 pg (26.0-34.0); MEAN CORPUSCULAR VOLUME 89.8 fL (80-100); MEAN PLATELET VOLUME 10.1 fL (9.2-13.0); MONOCYTES 4.8 %; MONOCYTES ABSOLUTE 0.78 10/3/uL (0.21-1.20); NEUTROPHILS 83.8 %; RBC DISTRIBUTION WIDTH 14.1 % (12.0-16.0); RED CELL COUNT 3.71 10/6/uL (4.7-6.1); WHITE BLOOD CELLS 16.3 10/3/uL (4.5-10.5)
[2016-06-05 05:15] LABS: MANUAL DIFF NO %; PLATELET COUNT 353 10/3/uL (150-400)
[2016-06-05 05:34] LABS: BUN (BLOOD UREA NITROGEN) 24 MG/DL (6-23); CALCIUM, SERUM 8.2 MG/DL (8.5-10.4); CHLORIDE, SERUM 100 MMOL/L (96-112); CO2 (CARBON DIOXIDE) 34 MMOL/L (24-34); CREATININE 0.36 MG/DL (0.70-1.30); GFR AFRICAN AMERICAN 137 ML/MIN (>=60); GFR NON AFRICAN AMERICAN 118 ML/MIN (>=60); GLUCOSE, SERUM 108 MG/DL (60-99); PHOSPHORUS, SERUM 2.9 MG/DL (2.5-4.5); POTASSIUM, SERUM 4.4 MMOL/L (3.5-5.3); SODIUM, SERUM 141 MMOL/L (135-148)
[2016-06-06 04:50] LABS: BASOPHILS 0.1 %; BASOPHILS ABSOLUTE 0.02 10/3/uL (0.0-0.16); EOSINOPHILS 0 %; HEMATOCRIT 33.7 % (40.0-51.0); HEMOGLOBIN 10.5 g/dL (13.6-17.8); IMMATURE GRANULOCYTES 1.2 %; IMMATURE GRANULOCYTES ABSOLUTE 0.18 10/3/uL (0.0-0.11); LYMPHOCYTES 7.2 %; LYMPHOCYTES ABSOLUTE 1.12 10/3/uL (0.67-4.30); MEAN CORPUS HGB CONC 31.2 g/dL (32.0-36.0); MEAN CORPUSCULAR HEMOGLOB 27.7 pg (26.0-34.0); MEAN CORPUSCULAR VOLUME 88.9 fL (80-100); MEAN PLATELET VOLUME 10.2 fL (9.2-13.0); MONOCYTES 2.6 %; NEUTROPHILS 88.9 %; NEUTROPHILS ABSOLUTE 13.74 10/3/uL (2.02-8.40); PLATELET COUNT 396 10/3/uL (150-400); RBC DISTRIBUTION WIDTH 14.2 % (12.0-16.0); RED CELL COUNT 3.79 10/6/uL (4.7-6.1); WHITE BLOOD CELLS 15.5 10/3/uL (4.5-10.5)
[2016-06-06 04:54] LABS: MANUAL DIFF NO %
[2016-06-06 05:01] LABS: BUN (BLOOD UREA NITROGEN) 21 MG/DL (6-23); CALCIUM, SERUM 8.2 MG/DL (8.5-10.4); CHLORIDE, SERUM 101 MMOL/L (96-112); CO2 (CARBON DIOXIDE) 33 MMOL/L (24-34); GFR AFRICAN AMERICAN 131 ML/MIN (>=60); GFR NON AFRICAN AMERICAN 113 ML/MIN (>=60); GLUCOSE, SERUM 129 MG/DL (60-99); PHOSPHORUS, SERUM 4.3 MG/DL (2.5-4.5); POTASSIUM, SERUM 4.3 MMOL/L (3.5-5.3); SODIUM, SERUM 142 MMOL/L (135-148)
[2016-06-07 06:00] LABS: BASOPHILS 0.1 %; BASOPHILS ABSOLUTE 0.02 10/3/uL (0.0-0.16); EOSINOPHILS 0.1 %; EOSINOPHILS ABSOLUTE 0.02 10/3/uL (0.0-0.53); HEMATOCRIT 35.1 % (40.0-51.0); HEMOGLOBIN 10.9 g/dL (13.6-17.8); IMMATURE GRANULOCYTES 1.3 %; IMMATURE GRANULOCYTES ABSOLUTE 0.19 10/3/uL (0.0-0.11); LYMPHOCYTES 16.1 %; LYMPHOCYTES ABSOLUTE 2.36 10/3/uL (0.67-4.30); MEAN CORPUS HGB CONC 31.1 g/dL (32.0-36.0); MEAN CORPUSCULAR HEMOGLOB 28.2 pg (26.0-34.0); MEAN CORPUSCULAR VOLUME 90.9 fL (80-100); MEAN PLATELET VOLUME 9.9 fL (9.2-13.0); MONOCYTES 9.1 %; MONOCYTES ABSOLUTE 1.33 10/3/uL (0.21-1.20); NEUTROPHILS 73.3 %; NEUTROPHILS ABSOLUTE 10.76 10/3/uL (2.02-8.40); PLATELET COUNT 376 10/3/uL (150-400); RBC DISTRIBUTION WIDTH 14.2 % (12.0-16.0); RED CELL COUNT 3.86 10/6/uL (4.7-6.1); WHITE BLOOD CELLS 14.7 10/3/uL (4.5-10.5)
[2016-06-07 06:03] LABS: MANUAL DIFF NO %
[2016-06-07 06:06] LABS: ALBUMIN 2.2 G/DL (3.5-5.0); BUN (BLOOD UREA NITROGEN) 20 MG/DL (6-23); CHLORIDE, SERUM 102 MMOL/L (96-112); CO2 (CARBON DIOXIDE) 35 MMOL/L (24-34); CREATININE 0.51 MG/DL (0.70-1.30); GFR AFRICAN AMERICAN 118 ML/MIN (>=60); GFR NON AFRICAN AMERICAN 102 ML/MIN (>=60); PHOSPHORUS, SERUM 3.9 MG/DL (2.5-4.5); POTASSIUM, SERUM 4.1 MMOL/L (3.5-5.3); SODIUM, SERUM 143 MMOL/L (135-148)
[2016-06-07 06:08] LABS: GLUCOSE, SERUM 83 MG/DL (60-99)
[2016-06-08 06:36] LABS: BASOPHILS 0.1 %; BASOPHILS ABSOLUTE 0.01 10/3/uL (0.0-0.16); EOSINOPHILS 0.2 %; EOSINOPHILS ABSOLUTE 0.02 10/3/uL (0.0-0.53); HEMATOCRIT 32.1 % (40.0-51.0); HEMOGLOBIN 10.2 g/dL (13.6-17.8); IMMATURE GRANULOCYTES 0.8 %; IMMATURE GRANULOCYTES ABSOLUTE 0.11 10/3/uL (0.0-0.11); LYMPHOCYTES 16.7 %; MEAN CORPUS HGB CONC 31.8 g/dL (32.0-36.0); MEAN CORPUSCULAR HEMOGLOB 28.7 pg (26.0-34.0); MEAN CORPUSCULAR VOLUME 90.4 fL (80-100); MEAN PLATELET VOLUME 9.6 fL (9.2-13.0); MONOCYTES 8.8 %; MONOCYTES ABSOLUTE 1.16 10/3/uL (0.21-1.20); NEUTROPHILS 73.4 %; NEUTROPHILS ABSOLUTE 9.65 10/3/uL (2.02-8.40); PLATELET COUNT 372 10/3/uL (150-400); RBC DISTRIBUTION WIDTH 13.9 % (12.0-16.0); RED CELL COUNT 3.55 10/6/uL (4.7-6.1); WHITE BLOOD CELLS 13.2 10/3/uL (4.5-10.5)
[2016-06-08 06:42] LABS: BUN (BLOOD UREA NITROGEN) 18 MG/DL (6-23); CALCIUM, SERUM 8.1 MG/DL (8.5-10.4); CHLORIDE, SERUM 102 MMOL/L (96-112); CO2 (CARBON DIOXIDE) 36 MMOL/L (24-34); CREATININE 0.43 MG/DL (0.70-1.30); GFR AFRICAN AMERICAN 127 ML/MIN (>=60); GFR NON AFRICAN AMERICAN 110 ML/MIN (>=60); GLUCOSE, SERUM 95 MG/DL (60-99); MANUAL DIFF NO %; POTASSIUM, SERUM 4.1 MMOL/L (3.5-5.3); SODIUM, SERUM 143 MMOL/L (135-148)
[2016-06-08 11:36] LABS: ALLENS TEST Pos; BE (BASE EXCESS) 10.8 MEQ/L (0 +/- 2.5); CARBOXYHEMOGLOBIN 0.5 % (0-3); HCO3 (ACTUAL BICARBONATE) 36.2 MEQ/L (23-27); HEMOBLOGIN CONTENT 10.6 G/DL (14-18); INSTRUMENT SERIAL # 8083; METHEMOGLOBIN 0.1 % (0-3); O2 CONTENT 14.4 VOL% (18-24); OPERATOR ID 14472; PCO2 (CO2 TENSION) 53 MMHG (35-45); PO2 (O2 TENSION) 82 MMHG (79-93); SAMPLE Arterial; pH 7.45 (7.37-7.43)
[2016-06-09 07:25] LABS: BASOPHILS 0.1 %; BASOPHILS ABSOLUTE 0.02 10/3/uL (0.0-0.16); EOSINOPHILS 0.4 %; EOSINOPHILS ABSOLUTE 0.06 10/3/uL (0.0-0.53); HEMATOCRIT 32.9 % (40.0-51.0); HEMOGLOBIN 10.6 g/dL (13.6-17.8); IMMATURE GRANULOCYTES 1.1 %; IMMATURE GRANULOCYTES ABSOLUTE 0.15 10/3/uL (0.0-0.11); LYMPHOCYTES 21.7 %; LYMPHOCYTES ABSOLUTE 3.08 10/3/uL (0.67-4.30); MEAN CORPUS HGB CONC 32.2 g/dL (32.0-36.0); MEAN CORPUSCULAR HEMOGLOB 28.7 pg (26.0-34.0); MEAN CORPUSCULAR VOLUME 89.2 fL (80-100); MEAN PLATELET VOLUME 9.9 fL (9.2-13.0); MONOCYTES 8.7 %; MONOCYTES ABSOLUTE 1.24 10/3/uL (0.21-1.20); NEUTROPHILS ABSOLUTE 9.65 10/3/uL (2.02-8.40); PLATELET COUNT 364 10/3/uL (150-400); RED CELL COUNT 3.69 10/6/uL (4.7-6.1); WHITE BLOOD CELLS 14.2 10/3/uL (4.5-10.5)
[2016-06-09 07:26] LABS: MANUAL DIFF NO %
[2016-06-09 07:42] LABS: BUN (BLOOD UREA NITROGEN) 16 MG/DL (6-23); CALCIUM, SERUM 7.9 MG/DL (8.5-10.4); CHLORIDE, SERUM 108 MMOL/L (96-112); CO2 (CARBON DIOXIDE) 27 MMOL/L (24-34); CREATININE 0.58 MG/DL (0.70-1.30); GFR AFRICAN AMERICAN 112 ML/MIN (>=60); GFR NON AFRICAN AMERICAN 97 ML/MIN (>=60); GLUCOSE, SERUM 98 MG/DL (60-99); SODIUM, SERUM 147 MMOL/L (135-148)
[2016-06-11 12:39] LABS: BASOPHILS 0.1 %; BASOPHILS ABSOLUTE 0.01 10/3/uL (0.0-0.16); EOSINOPHILS 0.6 %; EOSINOPHILS ABSOLUTE 0.08 10/3/uL (0.0-0.53); HEMATOCRIT 33.7 % (40.0-51.0); HEMOGLOBIN 10.8 g/dL (13.6-17.8); IMMATURE GRANULOCYTES 1.3 %; IMMATURE GRANULOCYTES ABSOLUTE 0.16 10/3/uL (0.0-0.11); LYMPHOCYTES 18.4 %; LYMPHOCYTES ABSOLUTE 2.29 10/3/uL (0.67-4.30); MEAN CORPUSCULAR HEMOGLOB 28.4 pg (26.0-34.0); MEAN CORPUSCULAR VOLUME 88.7 fL (80-100); MEAN PLATELET VOLUME 9.5 fL (9.2-13.0); MONOCYTES 6.5 %; MONOCYTES ABSOLUTE 0.81 10/3/uL (0.21-1.20); NEUTROPHILS 73.1 %; NEUTROPHILS ABSOLUTE 9.07 10/3/uL (2.02-8.40); PLATELET COUNT 402 10/3/uL (150-400); RBC DISTRIBUTION WIDTH 14.8 % (12.0-16.0); WHITE BLOOD CELLS 12.4 10/3/uL (4.5-10.5)
[2016-06-11 12:40] LABS: MANUAL DIFF NO %
[2016-06-11 13:02] LABS: T PROTEIN (ELECT)(NOT OR 4.9 G/DL (6.0-8.5)
[2016-06-11 13:15] LABS: A/G RATIO 0.9 (0.7-1.9); ALBUMIN 2.5 G/DL (3.5-5.0); ALKALINE PHOSPHATASE 59 U/L (45-117); BUN (BLOOD UREA NITROGEN) 18 MG/DL (6-23); CHLORIDE, SERUM 108 MMOL/L (96-112); FERRITIN 99 NG/ML (26-388); GFR AFRICAN AMERICAN 111 ML/MIN (>=60); GFR NON AFRICAN AMERICAN 96 ML/MIN (>=60); GLOBULIN 2.9 G/DL (2.5-4.1); GLUCOSE, SERUM 109 MG/DL (60-99); IRON BINDING CAPACITY 250 MCG/DL (250-450); IRON, SERUM 33 MCG/DL (35-150); POTASSIUM, SERUM 4.2 MMOL/L (3.5-5.3); SGOT(AST) 19 U/L (5-40); SGPT(ALT) 35 U/L (5-65); SODIUM, SERUM 144 MMOL/L (135-148); TOTAL BILIRUBIN 0.4 MG/DL (0-1.2); TOTAL PROTEIN 5.4 G/DL (6.0-8.5)
[2016-06-11 13:18] LABS: CO2 (CARBON DIOXIDE) 33 MMOL/L (24-34)
[2016-06-11 13:19] LABS: DIGOXIN 0.8 NG/ML (0.8-2.0)
[2016-06-12 09:41] LABS: A/G 1.48 RATIO (0.9-2.10); ALB RELATIVE % 59.6 % (60.0-89.0); ALBUMIN (ELECTRO) 2.92 GM/DL (3.2-5.5); ALPHA 1 (ELECTRO) 0.15 GM/DL (0.1-0.4); ALPHA 2 (ELECTRO) 0.74 GM/DL (0.5-1.10); ALPHA 2 RELAT % 15.1 % (4.5-26.0); BETA GLOBULIN (SPE) 0.65 GM/DL (0.60-1.30); BETA RELATIVE % 13.3 % (9.0-22.0); GAMMA GLOBULIN (SPE) 0.44 G/DL (0.70-1.60)
[2016-06-13 05:33] LABS: BASOPHILS 0.2 %; BASOPHILS ABSOLUTE 0.02 10/3/uL (0.0-0.16); EOSINOPHILS 0.7 %; EOSINOPHILS ABSOLUTE 0.07 10/3/uL (0.0-0.53); HEMATOCRIT 36.7 % (40.0-51.0); HEMOGLOBIN 11.5 g/dL (13.6-17.8); IMMATURE GRANULOCYTES 1.3 %; IMMATURE GRANULOCYTES ABSOLUTE 0.13 10/3/uL (0.0-0.11); LYMPHOCYTES 26.9 %; LYMPHOCYTES ABSOLUTE 2.67 10/3/uL (0.67-4.30); MEAN CORPUS HGB CONC 31.3 g/dL (32.0-36.0); MEAN CORPUSCULAR HEMOGLOB 28.5 pg (26.0-34.0); MEAN CORPUSCULAR VOLUME 90.8 fL (80-100); MEAN PLATELET VOLUME 9.9 fL (9.2-13.0); NEUTROPHILS 64.9 %; NEUTROPHILS ABSOLUTE 6.44 10/3/uL (2.02-8.40); PLATELET COUNT 306 10/3/uL (150-400); RBC DISTRIBUTION WIDTH 14.9 % (12.0-16.0); RED CELL COUNT 4.04 10/6/uL (4.7-6.1); WHITE BLOOD CELLS 9.9 10/3/uL (4.5-10.5)
[2016-06-13 05:34] LABS: MANUAL DIFF NO %
[2016-06-13 05:43] LABS: BUN (BLOOD UREA NITROGEN) 15 MG/DL (6-23); CALCIUM, SERUM 7.7 MG/DL (8.5-10.4); CHLORIDE, SERUM 108 MMOL/L (96-112); CO2 (CARBON DIOXIDE) 31 MMOL/L (24-34); GFR AFRICAN AMERICAN 119 ML/MIN (>=60); GFR NON AFRICAN AMERICAN 103 ML/MIN (>=60); POTASSIUM, SERUM 4.1 MMOL/L (3.5-5.3); SODIUM, SERUM 146 MMOL/L (135-148)
[2016-06-13 05:45] LABS: GLUCOSE, SERUM 86 MG/DL (60-99)
[2016-06-15 06:13] LABS: BASOPHILS 0.1 %; BASOPHILS ABSOLUTE 0.02 10/3/uL (0.0-0.16); EOSINOPHILS 0.5 %; EOSINOPHILS ABSOLUTE 0.07 10/3/uL (0.0-0.53); HEMOGLOBIN 10.7 g/dL (13.6-17.8); IMMATURE GRANULOCYTES 0.6 %; IMMATURE GRANULOCYTES ABSOLUTE 0.09 10/3/uL (0.0-0.11); LYMPHOCYTES 18.1 %; LYMPHOCYTES ABSOLUTE 2.75 10/3/uL (0.67-4.30); MEAN CORPUS HGB CONC 32.5 g/dL (32.0-36.0); MEAN CORPUSCULAR HEMOGLOB 28.9 pg (26.0-34.0); MEAN CORPUSCULAR VOLUME 88.9 fL (80-100); MEAN PLATELET VOLUME 9.8 fL (9.2-13.0); MONOCYTES 7.5 %; MONOCYTES ABSOLUTE 1.14 10/3/uL (0.21-1.20); NEUTROPHILS 73.2 %; NEUTROPHILS ABSOLUTE 11.12 10/3/uL (2.02-8.40); PLATELET COUNT 260 10/3/uL (150-400); RBC DISTRIBUTION WIDTH 15.3 % (12.0-16.0)
[2016-06-15 06:15] LABS: HEMATOCRIT 32.9 % (40.0-51.0); MANUAL DIFF NO %; WHITE BLOOD CELLS 15.2 10/3/uL (4.5-10.5)
[2016-06-15 06:28] LABS: CALCIUM, SERUM 7.9 MG/DL (8.5-10.4); CHLORIDE, SERUM 105 MMOL/L (96-112); CO2 (CARBON DIOXIDE) 30 MMOL/L (24-34); CREATININE 0.53 MG/DL (0.70-1.30); GFR AFRICAN AMERICAN 117 ML/MIN (>=60); GFR NON AFRICAN AMERICAN 101 ML/MIN (>=60); GLUCOSE, SERUM 85 MG/DL (60-99); POTASSIUM, SERUM 4.3 MMOL/L (3.5-5.3); SODIUM, SERUM 141 MMOL/L (135-148)
[2016-06-15 06:29] LABS: BUN (BLOOD UREA NITROGEN) 22 MG/DL (6-23)
[2016-06-15 12:24] LABS: C-REACTIVE PROTEIN 14.9 MG/L (<8.0)
[2016-06-15 13:23] LABS: PROCALCITONIN <0.05 ng/mL (<0.5)
[2016-06-15 15:48] LABS: ASCORBIC ACID (UR NOT ORDER) NEG (NEG); BILIRUBIN, URINE NEGATIVE (NEG); KETONE, URINE NEGATIVE (NEG); LEUKOCYTE ESTERASE(NOT OR TRACE (NEG); WBC (NOT ORDERED) (RFLEX) 18 (0-5)
[2016-06-16 07:04] LABS: BASOPHILS 0.2 %; BASOPHILS ABSOLUTE 0.02 10/3/uL (0.0-0.16); EOSINOPHILS 0.5 %; EOSINOPHILS ABSOLUTE 0.07 10/3/uL (0.0-0.53); HEMOGLOBIN 10.5 g/dL (13.6-17.8); IMMATURE GRANULOCYTES 0.6 %; IMMATURE GRANULOCYTES ABSOLUTE 0.08 10/3/uL (0.0-0.11); LYMPHOCYTES 16.3 %; LYMPHOCYTES ABSOLUTE 2.15 10/3/uL (0.67-4.30); MEAN CORPUS HGB CONC 32.8 g/dL (32.0-36.0); MEAN CORPUSCULAR HEMOGLOB 29.1 pg (26.0-34.0); MEAN CORPUSCULAR VOLUME 88.6 fL (80-100); MEAN PLATELET VOLUME 10.1 fL (9.2-13.0); MONOCYTES 7.3 %; MONOCYTES ABSOLUTE 0.97 10/3/uL (0.21-1.20); NEUTROPHILS 75.1 %; NEUTROPHILS ABSOLUTE 9.93 10/3/uL (2.02-8.40); PLATELET COUNT 208 10/3/uL (150-400); RBC DISTRIBUTION WIDTH 15.6 % (12.0-16.0); RED CELL COUNT 3.61 10/6/uL (4.7-6.1); WHITE BLOOD CELLS 13.2 10/3/uL (4.5-10.5)
[2016-06-16 07:13] LABS: MANUAL DIFF NO %
[2016-06-16 07:19] LABS: BUN (BLOOD UREA NITROGEN) 20 MG/DL (6-23); CHLORIDE, SERUM 106 MMOL/L (96-112); CO2 (CARBON DIOXIDE) 29 MMOL/L (24-34); CREATININE 0.46 MG/DL (0.70-1.30); GFR AFRICAN AMERICAN 124 ML/MIN (>=60); GFR NON AFRICAN AMERICAN 107 ML/MIN (>=60); GLUCOSE, SERUM 89 MG/DL (60-99); POTASSIUM, SERUM 4.3 MMOL/L (3.5-5.3); SODIUM, SERUM 143 MMOL/L (135-148)
[2016-06-16 14:05] LABS: ASCORBIC ACID (UR NOT ORDER) 40 (NEG); BILIRUBIN, URINE NEGATIVE (NEG); KETONE, URINE NEGATIVE (NEG); LEUKOCYTE ESTERASE(NOT OR SMALL (NEG); WBC (NOT ORDERED) (RFLEX) 16 (0-5)
[2016-06-17 07:13] LABS: BASOPHILS 0.3 %; BASOPHILS ABSOLUTE 0.03 10/3/uL (0.0-0.16); EOSINOPHILS 1.2 %; EOSINOPHILS ABSOLUTE 0.11 10/3/uL (0.0-0.53); HEMATOCRIT 32.6 % (40.0-51.0); HEMOGLOBIN 10.4 g/dL (13.6-17.8); IMMATURE GRANULOCYTES 0.6 %; IMMATURE GRANULOCYTES ABSOLUTE 0.06 10/3/uL (0.0-0.11); LYMPHOCYTES 26.1 %; LYMPHOCYTES ABSOLUTE 2.46 10/3/uL (0.67-4.30); MEAN CORPUS HGB CONC 31.9 g/dL (32.0-36.0); MEAN CORPUSCULAR HEMOGLOB 29.1 pg (26.0-34.0); MEAN PLATELET VOLUME 9.8 fL (9.2-13.0); MONOCYTES 5.6 %; MONOCYTES ABSOLUTE 0.53 10/3/uL (0.21-1.20); NEUTROPHILS 66.2 %; NEUTROPHILS ABSOLUTE 6.24 10/3/uL (2.02-8.40); PLATELET COUNT 205 10/3/uL (150-400); RBC DISTRIBUTION WIDTH 15.5 % (12.0-16.0); RED CELL COUNT 3.57 10/6/uL (4.7-6.1); WHITE BLOOD CELLS 9.4 10/3/uL (4.5-10.5)
[2016-06-17 07:15] LABS: MANUAL DIFF NO %; MEAN CORPUSCULAR VOLUME 91.3 fL (80-100)
[2016-06-18 06:55] LABS: CALCIUM, SERUM 7.9 MG/DL (8.5-10.4); CHLORIDE, SERUM 103 MMOL/L (96-112); CO2 (CARBON DIOXIDE) 33 MMOL/L (24-34); CREATININE 0.44 MG/DL (0.70-1.30); GFR AFRICAN AMERICAN 126 ML/MIN (>=60); GFR NON AFRICAN AMERICAN 109 ML/MIN (>=60); GLUCOSE, SERUM 86 MG/DL (60-99); POTASSIUM, SERUM 4.5 MMOL/L (3.5-5.3); SODIUM, SERUM 142 MMOL/L (135-148)
[2016-06-18 06:56] LABS: BUN (BLOOD UREA NITROGEN) 16 MG/DL (6-23)
[2016-06-19 06:36] LABS: BASOPHILS 0.4 %; BASOPHILS ABSOLUTE 0.03 10/3/uL (0.0-0.16); EOSINOPHILS 1.1 %; EOSINOPHILS ABSOLUTE 0.09 10/3/uL (0.0-0.53); HEMATOCRIT 30.8 % (40.0-51.0); HEMOGLOBIN 9.9 g/dL (13.6-17.8); IMMATURE GRANULOCYTES 0.6 %; IMMATURE GRANULOCYTES ABSOLUTE 0.05 10/3/uL (0.0-0.11); LYMPHOCYTES 24.5 %; LYMPHOCYTES ABSOLUTE 2.04 10/3/uL (0.67-4.30); MEAN CORPUS HGB CONC 32.1 g/dL (32.0-36.0); MEAN CORPUSCULAR HEMOGLOB 28.9 pg (26.0-34.0); MEAN CORPUSCULAR VOLUME 90.1 fL (80-100); MEAN PLATELET VOLUME 9.9 fL (9.2-13.0); MONOCYTES 9.1 %; MONOCYTES ABSOLUTE 0.76 10/3/uL (0.21-1.20); NEUTROPHILS 64.3 %; NEUTROPHILS ABSOLUTE 5.34 10/3/uL (2.02-8.40); PLATELET COUNT 206 10/3/uL (150-400); RBC DISTRIBUTION WIDTH 15.6 % (12.0-16.0); RED CELL COUNT 3.42 10/6/uL (4.7-6.1); WHITE BLOOD CELLS 8.3 10/3/uL (4.5-10.5)
[2016-06-19 06:38] LABS: ALBUMIN 2.2 G/DL (3.5-5.0); BUN (BLOOD UREA NITROGEN) 15 MG/DL (6-23); CHLORIDE, SERUM 102 MMOL/L (96-112); CO2 (CARBON DIOXIDE) 33 MMOL/L (24-34); CREATININE 0.42 MG/DL (0.70-1.30); GFR AFRICAN AMERICAN 128 ML/MIN (>=60); GFR NON AFRICAN AMERICAN 111 ML/MIN (>=60); GLUCOSE, SERUM 81 MG/DL (60-99); PHOSPHORUS, SERUM 3.5 MG/DL (2.5-4.5); POTASSIUM, SERUM 4.5 MMOL/L (3.5-5.3); SODIUM, SERUM 143 MMOL/L (135-148)
[2016-06-19 06:38] LABS: MANUAL DIFF NO %
== END 2016-06-20 18:19 | DRG 207 ==
LOC: ER 03:43 → CCU 05:58 → 6NO 06-05 16:43
PROVIDERS: Internal Medicine; Internal Medicine Cardiovascular Disease; Internal Medicine Pulmonary Disease; Specialist
PROC: 5A1955Z Respiratory Ventilation, Greater than 96 Consecutive Hours (ICD-10-PCS; principal; 2016-05-27)
PROC: 0BH17EZ Insertion of Endotracheal Airway into Trachea, Via Natural or Artificial Opening (ICD-10-PCS; 2016-05-27)
DX: J96.22 Acute and chronic respiratory failure with hypercapnia (principal); J14 Pneumonia due to Hemophilus influenzae; G93.41 Metabolic encephalopathy; I50.43 Acute on chronic combined systolic (congestive) and diastolic (congestive) heart failure; I48.2 Chronic atrial fibrillation; I11.0 Hypertensive heart disease with heart failure; D64.9 Anemia, unspecified; I95.2 Hypotension due to drugs; J44.1 Chronic obstructive pulmonary disease with (acute) exacerbation; J44.0 Chronic obstructive pulmonary disease with (acute) lower respiratory infection; T83.518A Infection and inflammatory reaction due to other urinary catheter, initial encounter; J96.21 Acute and chronic respiratory failure with hypoxia; I34.0 Nonrheumatic mitral (valve) insufficiency; Z23 Encounter for immunization; R33.9 Retention of urine, unspecified; I10 Essential (primary) hypertension; R41.0 Disorientation, unspecified; G89.29 Other chronic pain; M54.5 Low back pain; R53.1 Weakness; J32.3 Chronic sphenoidal sinusitis; N48.89 Other specified disorders of penis; B95.2 Enterococcus as the cause of diseases classified elsewhere; R33.8 Other retention of urine; Y84.6 Urinary catheterization as the cause of abnormal reaction of the patient, or of later complication, without mention of misadventure at the time of the procedure; Y92.230 Patient room in hospital as the place of occurrence of the external cause; Z82.3 Family history of stroke; Z87.891 Personal history of nicotine dependence; Z79.891 Long term (current) use of opiate analgesic; Z79.01 Long term (current) use of anticoagulants
CPT/HCPCS: 31500; 31720; 36600; 70450; 71010; 71020; 74000; 78452; 80048; 80053; 80069; 80162; 81001; 82272; 82533; 82550; 82553; 82607; 82728; 82746; 82805; 82962; 83540; 83550; 83605; 83735; 83880; 84100; 84134; 84145; 84155; 84165; 84439; 84443; 84484; 85025; 85610; 85730; 86140; 87040; 87070; 87077; 87086; 87186; 87205; 87449; 87641; 87804; 90662; 93005; 93017; 93306; 93970; 94002; 94003; 94640; 94660; 94770; 96374; 96375; 97110-GP; 97162-GP; 97166-GO; 97530-GP; 97535-GO; 99291; A9270-GY; A9502; C1894; C9113; G0008; J0153; J0280; J0282; J0456; J1120; J1940; J2920; J3010; J3370; J3486

== ENCOUNTER 2016-06-25 18:01 | Inpatient (IN) | payer BC ==
--- NOTE | ~2016-06-25 | PUL ---
[address] [address] NAME: VALENTE COBB : 37 STATUS : ADM IN [facility]#: [id number] AGE: 80 ADM/REG DATE : 06/25/16 MR#: [id number] REPORT SERV DATE: 07/07/16 DICTATED BY: SRIDHAR BROUSSARD DATE: 07/07/16 REPORT STATUS : Draft TRANSCRIBED BY: MODL DATE: 07/07/16 PULMONARY FUNCTION TEST PROCEDURE PERFORMED: Overnight oximetry. Oximetry performed on room air. The patient spent almost half an hour with an oxygen saturation less than 88%. The patient had only mildly elevated saturation event index. IMPRESSION: Abnormal overnight oximetry. The patient does qualify for supplemental oxygen. MORGAN/NIDHI Sridhar Broussard M.D. / [id number] CC: Kendall Martin MD
--- NOTE | ~2016-06-25 | IDS ---
Interim Discharge Summary [facility] [address] [place]. [address] NAME: VALENTE NAVA : 37 STATUS : ADM IN PAT#: [id number] AGE: 80 ADM/REG DATE : 06/25/16 MR#: [id number] REPORT SERV DATE: 07/01/16 DICTATED BY: GENIE REEVES DATE: 07/01/16 REPORT STATUS : Draft TRANSCRIBED BY: MODL DATE: 07/01/16 ADMISSION DATE: 06/25/2016 DISCHARGE DATE: REASON FOR ADMISSION: Acute on chronic hypercapnic respiratory failure. BRIEF HISTORY OF PRESENT ILLNESS: Please see Dr. Torres's dictated H and P for additional details. Mr. Nava is a 80-year-old gentleman with past medical history of underlying severe end-stage COPD, who has actually had multiple frequent hospitalizations recently between [facility] and [facility]. He has been intubated several times with prolonged periods of mechanical ventilation as his disease progressed. His son is his primary decision maker and reports that he has been "going downhill" for some time including weight loss and worsening exertional dyspnea. He does wear oxygen at home and is a chronic CO2 retainer according to his records. Please see additional details in Dr. Torres's H and P from 06/25. HOSPITAL COURSE: Mr. Nava was admitted to the CCU for respiratory failure and was intubated on 06/25. He was actually found to have had a history of Haemophilus pneumonia in 05/2016 based on old records. He was treated with bronchodilators, inhaled steroids, as well as systemic steroids and diuresed with gradual improvement in his daily weaning trials until he was successfully extubated on 06/29/2016 back to his home flow of nasal oxygen. He has been stable on nasal oxygen for a couple of days in the CCU and is now preparing to move to the floor. ACTIVE PROBLEM LIST: 1. Acute on chronic hypoxemic and hypercapnic respiratory failure with chronic CO2 retention wearing home oxygen. He was ventilated mechanically from 06/25 to 06/29. 2. Severe/end-stage COPD with multiple recent hospitalizations between [facility] and [facility] with multiple recent intubations. Palliative Care was consulted by last week's critical care team and are planning to evaluate him today. 3. Septic shock, now off Levophed (discontinued 06/29). White blood cell count has mildly increased to 12.6 today, however, he remains afebrile. Of note, he has been on corticosteroids, which may be contributing to his leukocytosis. 4. Chronic diastolic heart failure. 5. Atrial fibrillation, which is chronic and appears to be triggered by hypoxemia. 6. Chronic anemia with a stable hemoglobin and hematocrit. 7. Chronic pain syndrome. Recommend avoiding sedating medications where possible as it potentially worsens hypercapnia. 8. Prophylaxis. He is on rivaroxaban and proton pump inhibitor. 9. He remains a full code. Palliative Care has been consulted by Dr. Peters. He has morning labs ordered for tomorrow. Physical therapy will be requested, and he will move to a monitored bed under Hospital Medicine Service. Please call with additional questions. SIMONE/NIDHI Interim Discharge Summary [address] [address] NAME: VALENTE NAVA : 37 STATUS : ADM IN [facility]#: [id number] AGE: 80 ADM/REG DATE : 06/25/16 MR#: [id number] REPORT SERV DATE: 07/01/16 DICTATED BY: GENIE REEVES DATE: 07/01/16 REPORT STATUS : Draft TRANSCRIBED BY: NIDHI DATE: 07/01/16 Genie Reeves MD / [id number] CC: Cornel Galvez MD
--- NOTE | ~2016-06-25 | DS ---
Discharge Summary [facility] [address] [place]. [address] NAME: VALENTE COBB : 37 STATUS : DIS IN PAT#: [id number] AGE: 80 ADM/REG DATE : 06/25/16 MR#: [id number] REPORT SERV DATE: 07/10/16 DICTATED BY: KANDIS SMITH DATE: 07/05/16 REPORT STATUS : Draft TRANSCRIBED BY: MODL DATE: 07/05/16 ADMISSION DATE: 06/25/2016 DISCHARGE DATE: The patient is a 80-year-old male with a history of end-stage COPD, chronic hypoxia with oxygen use, hypertension, AFib, who presented to the hospital secondary to acute on chronic hypercapnic respiratory failure. For further details please refer to H and P dictated by Dr. Torres on 06/25/2016. HOSPITAL COURSE: Please refer to interim discharge summary dictated by Dr. Amador, in addition I assumed care of the patient on 07/02/2016. At the time of my assumption of care, the patient was noted to be severely lethargic. Stat ABG was ordered which noted significant hypercapnia. The patient was placed back on BiPAP machine with improvement of his hypercapnia and also with subsequent improvement of his mental status. Given his apparent dependent on BiPAP Case Management was consulted to assist in procurement of a BiPAP machine for the patient. BiPAP machine has been approved and has been obtained, currently in the patient's possession. Also given his chronic medical issues it has been recommended that the patient be discharged to a assisted facility. From a medical standpoint. The patient has been medically stable. He has been hemodynamically stable requiring intermittent BiPAP at night. The patient has been counseled on the importance of BiPAP use. He voices understanding and minimum use BiPAP at night. Also given the patient's multiple hospitalizations requiring ICU level of care with intubation and his other chronic medical problems, Palliative Care was consulted to discuss goals of care. Per conversation with Palliative Care the patient will remain full code; however, resuscitation efforts will be very brief. For further details please refer to Palliative Care note from today 07/05/2016. Given conclusion of workup the patient will be discharged today to a assisted facility. Case Management has found a facility for the patient and the Medical Team is very grateful for the efforts of Case Management. Therefore, the patient will be discharged to a assisted facility today with the BiPAP machine. DISCHARGE DIAGNOSES: 1. Acute on chronic hypercapnic respiratory failure. 2. Heart failure with preserved ejection fraction. 3. Atrial fibrillation. 4. End-stage chronic obstructive pulmonary disease. 5. Normocytic anemia. 6. Leukocytosis. DISCHARGE MEDICATIONS: The patient's home medications were continued. No additional medications were added. Discharge medications include: 1. Aspirin 81 mg p.o. daily. 2. Amiodarone 200 mg p.o. twice a day. 3. Carvedilol 3.125 mg p.o. twice a day. 4. Digoxin 0.125 mg p.o. after lunch. 5. Folic acid 1 mg p.o. daily. 6. Lisinopril 2.5 mg p.o. every morning. Discharge Summary [address] [address] NAME: VALENTE COBB : 37 STATUS : DIS IN PAT#: [id number] AGE: 80 ADM/REG DATE : 06/25/16 MR#: [id number] REPORT SERV DATE: 07/10/16 DICTATED BY: KANDIS SMITH DATE: 07/05/16 REPORT STATUS : Draft TRANSCRIBED BY: NIDHI DATE: 07/05/16 7. One tablet multivitamin. 8. Potassium 10 mEq p.o. every morning. 9. Rivaroxaban 20 mg p.o. with supper. 10.Tamsulosin 0.4 mg p.o. with supper. 11.Albuterol nebulizer q.4 hours p.r.n. 12.Spiriva two inhalations every morning. 13.Lasix 20 mg p.o. every morning. 14.Albuterol neb inhalation q.4 hours p.r.n. DISCHARGE DISPOSITION: The patient will be discharged to assisted facility. DIET: Mechanical soft and advance as tolerated. ACTIVITY: As tolerated. Greater than 30 minutes were spent coordinating discharge, discussion of care of the patient with nursing staff and case management, medication reconciliation, dictation of note, consults. ADDENDUM The patient was unable to be discharged to assisted facility on 07/05/2016, because family was unable to sign paperwork at facility as part of admission requirements. Therefore, the patient was kept over the weekend. Over the weekend the patient has remained hemodynamically stable. Given his hemodynamic stability, the patient will be discharged home today. Case management has been made aware of difficulty and their assistance is appreciated. All other information in the discharge summary remains the same. Greater than 30 minutes were spent coordinating and planning discharge. NICHOL/NIDHI Kandis Smith MD / [id number] CC: Kandis Smith MD
--- NOTE | ~2016-06-25 | HP ---
History And Physical [id number] [place]. [address] NAME: VALENTE NAVA : 37 STATUS : ADM IN [facility]#: [id number] AGE: 80 ADM/REG DATE : 06/25/16 MR#: [id number] REPORT SERV DATE: 06/25/16 DICTATED BY: PATEL TORRES DATE: 06/25/16 REPORT STATUS : Draft TRANSCRIBED BY: MODL DATE: 06/25/16 DATE OF ADMISSION: 06/25/2016 REASON FOR ADMISSION: Acute on chronic hypercapnic respiratory failure. CHIEF COMPLAINT: Unable to obtain due to the patient's current medical status. HISTORY OF PRESENT ILLNESS: Mr. Nava is a 80-year-old gentleman with a past medical history of underlying severe end-stage COPD. I have interviewed the patient's son who is his only biological son along with a cousin in the emergency room. They state that he has been declining over the last several years, but definitely are over the last year and half, the patient has had multiple admissions mostly to [facility]. They mentioned that he has only stayed out of the hospital for about one month in the last a year and a half, and he would go right back in. He was admitted in the early part of May and was discharged 06/19/2016. The patient's family states that the last admission was the hardest for him to get off the ventilator. This is the fourth time today that he has been admitted and required mechanical ventilation. The family states that the periods on mechanical ventilation is getting longer. They also mention he has been losing weight. Otherwise, the son is quite active in his care, the patient last couple days has had no issues according to the son, but this morning, he came to the rehab facility and the patient was asleep and could not wake him up. Oxygen saturation was around 48%. They placed the patient on some oxygen, but this did not help, and the patient was brought to the emergency room. In the emergency room, the patient's arterial blood gas showed acute on chronic hypercapnic respiratory failure. PAST MEDICAL HISTORY: End-stage COPD, chronic hypoxia with oxygen use, hypertension, atrial fibrillation, history of hyponatremia, lower back pain, chronic diastolic heart failure, history of recurring exacerbations of COPD, history of Haemophilus influenza pneumonia, urine tract infection, Enterococcus faecalis, delirium, weakness, and failure to thrive. MEDICATIONS: Aspirin, Lipitor, amiodarone, Coreg, digoxin, folic acid, Lasix, lisinopril, multivitamins, Protonix, potassium, Xarelto, Flomax, Spiriva, Proventil. The home med has not been reconciled by the pharmacy staff, this is the discharge medications list as the son cannot remember all of the medications that his father is on. ALLERGIES: NO KNOWN DRUG ALLERGIES. FAMILY HISTORY: Father had cirrhosis, mother had heart disease. SOCIAL HISTORY: The patient currently resides in a rehab facility prior to admission. He has had a long history of smoking, still gets back to smoking when he has access to cigarettes. No alcohol or illicit drug use. 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 REVIEW OF SYSTEMS: Unable to obtain review of systems due to current medical status. History And Physical [address] [address] NAME: VALENTE NAVA : 37 STATUS : ADM IN [facility]#: [id number] AGE: 80 ADM/REG DATE : 06/25/16 MR#: [id number] REPORT SERV DATE: 06/25/16 DICTATED BY: PATEL TORRES DATE: 06/25/16 REPORT STATUS : Draft TRANSCRIBED BY: NIDHI DATE: 06/25/16 PHYSICAL EXAMINATION: VITAL SIGNS: Currently afebrile, heart rate 98, blood pressure currently 98/63, oxygen saturation 100% on mechanical ventilation. GENERAL: The patient is waking up after intubation, he is moving all extremity, mild agitation. HEENT: No JVD noted. Neck is supple. PULMONARY: The patient has distant breath sounds bilaterally, mild wheezing and coarseness. CARDIAC: Distant heart sounds, no murmurs. ABDOMEN: Soft, nontender, nondistended. EXTREMITIES: No lower extremity edema, peripheral pulses noted in all extremities, extremities lukewarm. NEUROLOGIC: The patient is able to move all extremities with no difficulty. LABORATORY EXAMINATION: No leukocytosis. Good kidney function. Bicarbonate 38. Albumin 2.6. Arterial blood gas shows a pH of 7.28, pCO2 of 103, pO2 of 62. Chest x-ray: Chest x-ray finds evidence of long-standing COPD. ASSESSMENT AND PLAN: Mr. Nava is a 80-year-old gentleman with a past medical history noted above, who presents to the intensive care unit with acute on chronic exacerbation of chronic obstructive pulmonary disease with acute on chronic hypercapnic respiratory failure. 1. Acute exacerbation of chronic obstructive pulmonary disease. At this moment in time, we will treat the patient with Candelario Ritter DuoNeb. I do not see any inflammatory markers for evidence of pneumonia. No antibiotics at this moment in time. We will give IV steroids. We will continue mechanical ventilation, adjusted vent settings with the RT. We will obtain an arterial blood gas in one hour. 2. Very severe chronic obstructive pulmonary disease. Unclear, if this patient's FEV1; however, the patient clearly has progressive worsening chronic obstructive pulmonary disease. My concern is that this patient had this exacerbation of chronic obstructive pulmonary disease, not necessarily from a viral or bacterial infection, but rather just the significant worsening of his lung disease, the patient most likely meets the criteria for having noninvasive positive pressure ventilation for his chronic obstructive pulmonary disease. Family is unaware if this therapy was given. I had a long discussion with the family of his disease progression. 3. Atrial fibrillation. We will continue home medications and anticoagulation. 4. Diet. We will check a KUB for NG tube placement, the patient needs to have his tube feeds started. 5. Prophylaxis. The patient is currently on is Xarelto, Protonix. 6. Goals of care. Greater than 30 minutes family discussion was conducted with the patient's son and cousin. They give me a history of this patient having worsening exacerbations, more frequent exacerbations, worsening shortness of breath, and hospitalization events along with the need for mechanical ventilation. Most striking, the patient is also losing weight and muscle mass according to the family. We had a long discussion that unfortunately this patient is reaching the end-stage of his chronic obstructive pulmonary disease. They feel that he would not want to be trached. They are unclear whether the patient would want mechanical ventilation or chest History And Physical [address] [address] NAME: VALENTE NAVA : 37 STATUS : ADM IN [facility]#: [id number] AGE: 80 ADM/REG DATE : 06/25/16 MR#: [id number] REPORT SERV DATE: 06/25/16 DICTATED BY: PATEL TORRES DATE: 06/25/16 REPORT STATUS : Draft TRANSCRIBED BY: NIDHI DATE: 06/25/16 compressions. He has made statements in the past that he does not want to be on machines and does not want to be resuscitated. However, every time he comes off the ventilator, he is very grateful for the care that he has been provided and that is where the family is unclear of his wishes whether he wants to go through these hospitalizations or to be allowed to pass away peacefully. At the end of the discussion, I mentioned that it will be up to the patient and the family to come up with the wishes. The son would like to have his father survived this hospitalization and ask him whether they would want to do this again. Therefore at this moment time, the patient is currently full code. However, the family does not believe that he would want to have a tracheostomy and therefore, if the patient is unable to be weaned off mechanical ventilation in the next 10 days, they most likely will pursue hospice and comfort care. CRITICAL CARE TIME: 60 minutes. HFQ/NIDHI Patel Torres MD / [id number] CC: Patel Torres MD
[2016-06-25 17:56] LABS: BASOPHILS 0.4 %; BASOPHILS ABSOLUTE 0.03 10/3/uL (0.0-0.16); EOSINOPHILS 0.3 %; EOSINOPHILS ABSOLUTE 0.02 10/3/uL (0.0-0.53); ER CBC TAT 0 Hrs 05 Mins; HEMATOCRIT 29.6 % (40.0-51.0); HEMOGLOBIN 8.8 g/dL (13.6-17.8); IMMATURE GRANULOCYTES 3.1 %; IMMATURE GRANULOCYTES ABSOLUTE 0.24 10/3/uL (0.0-0.11); LYMPHOCYTES 15.9 %; LYMPHOCYTES ABSOLUTE 1.24 10/3/uL (0.67-4.30); MEAN CORPUSCULAR HEMOGLOB 29.1 pg (26.0-34.0); MEAN PLATELET VOLUME 9.3 fL (9.2-13.0); MONOCYTES 7.6 %; MONOCYTES ABSOLUTE 0.59 10/3/uL (0.21-1.20); NEUTROPHILS 72.7 %; NEUTROPHILS ABSOLUTE 5.67 10/3/uL (2.02-8.40); RBC DISTRIBUTION WIDTH 15.1 % (12.0-16.0); RED CELL COUNT 3.02 10/6/uL (4.7-6.1); WHITE BLOOD CELLS 7.8 10/3/uL (4.5-10.5)
[2016-06-25 17:57] LABS: MANUAL DIFF NO %; MEAN CORPUS HGB CONC 29.7 g/dL (32.0-36.0); PLATELET COUNT 278 10/3/uL (150-400)
[~2016-06-25 18:01] MED LIST changes: +ALBUTEROL0.083 % INH; +CARTIA XT240 MG/24 PO; +L40 PO; +MICRO-K10 MEQ PO; +XARELTO20 MG PO
[2016-06-25 18:08] LABS: INTERNATIONAL NORMAL RATI 1.4 UNITS (-); PARTIAL THROMBO TIME 36.2 SEC (22.5-37.2); PROTIME (NOT ORD) 17.2 SEC (12.0-14.5)
[2016-06-25 18:15] LABS: ALBUMIN 2.6 G/DL (3.5-5.0); CALCIUM, SERUM 7.8 MG/DL (8.5-10.4); CHEST PAIN PROFILE TAT 0 Hrs 24 Mins; CHLORIDE, SERUM 98 MMOL/L (96-112); CREATININE 0.37 MG/DL (0.70-1.30); GFR AFRICAN AMERICAN 135 ML/MIN (>=60); GFR NON AFRICAN AMERICAN 117 ML/MIN (>=60); POTASSIUM, SERUM 5.2 MMOL/L (3.5-5.3); SGOT(AST) 19 U/L (5-40); SGPT(ALT) 25 U/L (5-65); SODIUM, SERUM 141 MMOL/L (135-148); TOTAL BILIRUBIN 0.2 MG/DL (0-1.2); TOTAL PROTEIN 5.9 G/DL (6.0-8.5); TROPONIN I <0.02 NG/ML (<0.05)
[2016-06-25 18:16] LABS: ALKALINE PHOSPHATASE 80 U/L (45-117); BUN (BLOOD UREA NITROGEN) 20 MG/DL (6-23); CO2 (CARBON DIOXIDE) 38 MMOL/L (24-34); DIRECT BILIRUBIN < 0.1 MG/DL (0.0-0.4); GLUCOSE, SERUM 120 MG/DL (60-99); INDIRECT BILIRUBIN(NOT ORDER) 0.1 MG/DL (0.1-0.9)
[2016-06-25 18:30] LABS: ALLENS TEST Pos; BE (BASE EXCESS) 16.6 MEQ/L (0 +/- 2.5); CARBOXYHEMOGLOBIN 1.6 % (0-3); DEVICE NC; HCO3 (ACTUAL BICARBONATE) 46.6 MEQ/L (23-27); HEMOBLOGIN CONTENT 9.5 G/DL (14-18); INSTRUMENT SERIAL # 8087; METHEMOGLOBIN 0.3 % (0-3); O2 CONTENT 11.9 VOL% (18-24); OPERATOR ID 35091; PCO2 (CO2 TENSION) 103 MMHG (35-45); PO2 (O2 TENSION) 62 MMHG (79-93); SAMPLE Arterial; pH 7.28 (7.37-7.43)
[2016-06-25] MEDS ORDERED: FLOMAX4 PO (19:43)
[2016-06-25] MEDS ORDERED: ALBUTEROL0.083 % INH ×2 (19:43→19:45)
[2016-06-25] MEDS ORDERED: LAN125 PO (19:44)
[2016-06-25] MEDS ORDERED: XARELTO20 MG PO (19:44)
[2016-06-25] MEDS ORDERED: SPIRIVA INH (19:44)
[2016-06-25] MEDS ORDERED: COREG3 PO (19:44)
[2016-06-25] MEDS ORDERED: FOLIC PO (19:45)
[2016-06-25] MEDS ORDERED: CORDARONE PO (19:45)
[2016-06-25] MEDS ORDERED: ASAB PO (19:45)
[2016-06-25] MEDS ORDERED: PRIN2.5 PO (19:45)
[2016-06-25] MEDS ORDERED: MULTIVIT/MIN PO (19:46)
[2016-06-25] MEDS ORDERED: KLOR-CON 1010 MEQ PO (19:46)
[2016-06-25] MEDS ORDERED: L20 PO (19:46)
[2016-06-25 19:49] LABS: LACTATE 2.3 MMOL/L (0.3-2.4)
[2016-06-25 20:30] LABS: INSTRUMENT SERIAL # 35151
[2016-06-25 20:31] LABS: ALLENS TEST Pos; BE (BASE EXCESS) 10.2 MEQ/L (0 +/- 2.5); CARBOXYHEMOGLOBIN 0.3 % (0-3); HEMOBLOGIN CONTENT 8.4 G/DL (14-18); METHEMOGLOBIN 0.7 % (0-3); MODE SIMV; O2 CONTENT 12.6 VOL% (18-24); OPERATOR ID 35190; PCO2 (CO2 TENSION) 49 MMHG (35-45); PO2 (O2 TENSION) 365 MMHG (79-93); PRESSURE SUPPORT 0 cm.H2O; SAMPLE Arterial; TIDAL VOLUME 600 ML; pH 7.47 (7.37-7.43)
[2016-06-25 20:52] LABS: B NATRIURETIC PEPTIDE (BNP) 434.6 PG/ML (< 100.0)
[2016-06-25 21:22] LABS: BUN (BLOOD UREA NITROGEN) 17 MG/DL (6-23); CALCIUM, SERUM 7.6 MG/DL (8.5-10.4); CHLORIDE, SERUM 102 MMOL/L (96-112); CO2 (CARBON DIOXIDE) 40 MMOL/L (24-34); CREATININE 0.37 MG/DL (0.70-1.30); GFR AFRICAN AMERICAN 135 ML/MIN (>=60); GFR NON AFRICAN AMERICAN 117 ML/MIN (>=60); GLUCOSE, SERUM 100 MG/DL (60-99); PHOSPHORUS, SERUM 2.7 MG/DL (2.5-4.5); POTASSIUM, SERUM 4.9 MMOL/L (3.5-5.3); SODIUM, SERUM 145 MMOL/L (135-148)
[2016-06-25 22:42] LABS: PROCALCITONIN <0.05 ng/mL (<0.5)
[2016-06-26 03:54] LABS: BE (BASE EXCESS) 11.6 MEQ/L (0 +/- 2.5); CARBOXYHEMOGLOBIN 0.3 % (0-3); HEMOBLOGIN CONTENT 8.9 G/DL (14-18); INSTRUMENT SERIAL # 35151; METHEMOGLOBIN 0.7 % (0-3); MODE CMV; O2 CONTENT 12.6 VOL% (18-24); PCO2 (CO2 TENSION) 41 MMHG (35-45); PO2 (O2 TENSION) 164 MMHG (79-93); SAMPLE Arterial; TIDAL VOLUME 600 ML; pH 7.55 (7.37-7.43)
[2016-06-26 05:05] LABS: BASOPHILS 0.2 %; BASOPHILS ABSOLUTE 0.01 10/3/uL (0.0-0.16); EOSINOPHILS 0.2 %; EOSINOPHILS ABSOLUTE 0.01 10/3/uL (0.0-0.53); IMMATURE GRANULOCYTES ABSOLUTE 0.13 10/3/uL (0.0-0.11); LYMPHOCYTES 12.6 %; LYMPHOCYTES ABSOLUTE 0.82 10/3/uL (0.67-4.30); MEAN CORPUS HGB CONC 30.3 g/dL (32.0-36.0); MEAN CORPUSCULAR HEMOGLOB 28.8 pg (26.0-34.0); MEAN PLATELET VOLUME 9.4 fL (9.2-13.0); MONOCYTES 1.5 %; NEUTROPHILS 83.5 %; NEUTROPHILS ABSOLUTE 5.43 10/3/uL (2.02-8.40); PLATELET COUNT 236 10/3/uL (150-400); RBC DISTRIBUTION WIDTH 15.1 % (12.0-16.0); RED CELL COUNT 2.78 10/6/uL (4.7-6.1); WHITE BLOOD CELLS 6.5 10/3/uL (4.5-10.5)
[2016-06-26 05:13] LABS: HEMATOCRIT 26.4 % (40.0-51.0); MANUAL DIFF NO %
[2016-06-26 05:23] LABS: BUN (BLOOD UREA NITROGEN) 18 MG/DL (6-23); CHLORIDE, SERUM 103 MMOL/L (96-112); CREATININE 0.39 MG/DL (0.70-1.30); GFR AFRICAN AMERICAN 132 ML/MIN (>=60); GFR NON AFRICAN AMERICAN 114 ML/MIN (>=60); GLUCOSE, SERUM 107 MG/DL (60-99); POTASSIUM, SERUM 4.3 MMOL/L (3.5-5.3); SODIUM, SERUM 144 MMOL/L (135-148)
[2016-06-26 05:24] LABS: CO2 (CARBON DIOXIDE) 34 MMOL/L (24-34); PHOSPHORUS, SERUM 1.7 MG/DL (2.5-4.5)
[2016-06-27 03:58] LABS: BE (BASE EXCESS) 9.8 MEQ/L (0 +/- 2.5); CARBOXYHEMOGLOBIN 0.3 % (0-3); HCO3 (ACTUAL BICARBONATE) 31.9 MEQ/L (23-27); INSTRUMENT SERIAL # 35151; METHEMOGLOBIN 0.6 % (0-3); MODE CMV; O2 CONTENT 12.6 VOL% (18-24); OPERATOR ID 23712; PCO2 (CO2 TENSION) 33 MMHG (35-45); PO2 (O2 TENSION) 129 MMHG (79-93); SAMPLE Arterial; TIDAL VOLUME 600 ML
[2016-06-27 05:25] LABS: A/G RATIO 0.8 (0.7-1.9); ALBUMIN 2.3 G/DL (3.5-5.0); ALKALINE PHOSPHATASE 76 U/L (45-117); CALCIUM, SERUM 7.8 MG/DL (8.5-10.4); CHLORIDE, SERUM 101 MMOL/L (96-112); CO2 (CARBON DIOXIDE) 34 MMOL/L (24-34); CREATININE 0.56 MG/DL (0.70-1.30); GFR AFRICAN AMERICAN 114 ML/MIN (>=60); GFR NON AFRICAN AMERICAN 98 ML/MIN (>=60); GLOBULIN 2.9 G/DL (2.5-4.1); POTASSIUM, SERUM 3.7 MMOL/L (3.5-5.3); SGOT(AST) 12 U/L (5-40); SGPT(ALT) 18 U/L (5-65); SODIUM, SERUM 142 MMOL/L (135-148); TOTAL BILIRUBIN 0.3 MG/DL (0-1.2); TOTAL PROTEIN 5.2 G/DL (6.0-8.5)
[2016-06-27 05:27] LABS: BUN (BLOOD UREA NITROGEN) 23 MG/DL (6-23); GLUCOSE, SERUM 222 MG/DL (60-99); PHOSPHORUS, SERUM 2.6 MG/DL (2.5-4.5)
[2016-06-27 05:29] LABS: BASOPHILS 0.1 %; BASOPHILS ABSOLUTE 0.01 10/3/uL (0.0-0.16); EOSINOPHILS 0 %; HEMATOCRIT 26.8 % (40.0-51.0); HEMOGLOBIN 8.6 g/dL (13.6-17.8); IMMATURE GRANULOCYTES 0.8 %; IMMATURE GRANULOCYTES ABSOLUTE 0.07 10/3/uL (0.0-0.11); LYMPHOCYTES 12.9 %; LYMPHOCYTES ABSOLUTE 1.08 10/3/uL (0.67-4.30); MEAN PLATELET VOLUME 9.6 fL (9.2-13.0); MONOCYTES 4.4 %; MONOCYTES ABSOLUTE 0.37 10/3/uL (0.21-1.20); NEUTROPHILS 81.8 %; NEUTROPHILS ABSOLUTE 6.85 10/3/uL (2.02-8.40); PLATELET COUNT 266 10/3/uL (150-400); RBC DISTRIBUTION WIDTH 16.1 % (12.0-16.0); RED CELL COUNT 2.97 10/6/uL (4.7-6.1); WHITE BLOOD CELLS 8.4 10/3/uL (4.5-10.5)
[2016-06-27 05:34] LABS: MANUAL DIFF NO %; MEAN CORPUS HGB CONC 32.1 g/dL (32.0-36.0); MEAN CORPUSCULAR VOLUME 90.2 fL (80-100)
[2016-06-28 03:48] LABS: ALLENS TEST Pos; BE (BASE EXCESS) 5.4 MEQ/L (0 +/- 2.5); CARBOXYHEMOGLOBIN 1.5 % (0-3); HCO3 (ACTUAL BICARBONATE) 29.4 MEQ/L (23-27); HEMOBLOGIN CONTENT 8.4 G/DL (14-18); INSTRUMENT SERIAL # 8087; METHEMOGLOBIN 0.3 % (0-3); MODE CMV; O2 CONTENT 11.8 VOL% (18-24); OPERATOR ID 17589; PCO2 (CO2 TENSION) 41 MMHG (35-45); PO2 (O2 TENSION) 135 MMHG (79-93); SAMPLE Arterial; TIDAL VOLUME 450 ML; pH 7.47 (7.37-7.43)
[2016-06-28 05:12] LABS: BASOPHILS 0.1 %; BASOPHILS ABSOLUTE 0.01 10/3/uL (0.0-0.16); EOSINOPHILS 0 %; HEMATOCRIT 26.1 % (40.0-51.0); HEMOGLOBIN 8.3 g/dL (13.6-17.8); IMMATURE GRANULOCYTES 1.1 %; IMMATURE GRANULOCYTES ABSOLUTE 0.15 10/3/uL (0.0-0.11); LYMPHOCYTES 6.8 %; LYMPHOCYTES ABSOLUTE 0.96 10/3/uL (0.67-4.30); MEAN CORPUS HGB CONC 31.8 g/dL (32.0-36.0); MEAN CORPUSCULAR VOLUME 91.3 fL (80-100); MEAN PLATELET VOLUME 9.2 fL (9.2-13.0); MONOCYTES 5.1 %; MONOCYTES ABSOLUTE 0.72 10/3/uL (0.21-1.20); NEUTROPHILS 86.9 %; NEUTROPHILS ABSOLUTE 12.27 10/3/uL (2.02-8.40); PLATELET COUNT 333 10/3/uL (150-400); RBC DISTRIBUTION WIDTH 16.1 % (12.0-16.0); RED CELL COUNT 2.86 10/6/uL (4.7-6.1)
[2016-06-28 05:18] LABS: MANUAL DIFF NO %; WHITE BLOOD CELLS 14.1 10/3/uL (4.5-10.5)
[2016-06-28 05:30] LABS: A/G RATIO 0.8 (0.7-1.9); ALBUMIN 2.3 G/DL (3.5-5.0); ALKALINE PHOSPHATASE 75 U/L (45-117); CALCIUM, SERUM 7.5 MG/DL (8.5-10.4); CHLORIDE, SERUM 102 MMOL/L (96-112); CO2 (CARBON DIOXIDE) 31 MMOL/L (24-34); CREATININE 0.47 MG/DL (0.70-1.30); GFR AFRICAN AMERICAN 123 ML/MIN (>=60); GFR NON AFRICAN AMERICAN 106 ML/MIN (>=60); GLOBULIN 2.8 G/DL (2.5-4.1); GLUCOSE, SERUM 203 MG/DL (60-99); PHOSPHORUS, SERUM 2.4 MG/DL (2.5-4.5); POTASSIUM, SERUM 3.6 MMOL/L (3.5-5.3); SGOT(AST) 8 U/L (5-40); SGPT(ALT) 17 U/L (5-65); SODIUM, SERUM 141 MMOL/L (135-148); TOTAL BILIRUBIN 0.5 MG/DL (0-1.2); TOTAL PROTEIN 5.1 G/DL (6.0-8.5)
[2016-06-28 05:35] LABS: BUN (BLOOD UREA NITROGEN) 19 MG/DL (6-23)
[2016-06-29 05:12] LABS: HEMATOCRIT 25.1 % (40.0-51.0); HEMOGLOBIN 7.9 g/dL (13.6-17.8); MEAN CORPUS HGB CONC 31.5 g/dL (32.0-36.0); MEAN CORPUSCULAR HEMOGLOB 28.7 pg (26.0-34.0); MEAN CORPUSCULAR VOLUME 91.3 fL (80-100); MEAN PLATELET VOLUME 9.3 fL (9.2-13.0); PLATELET COUNT 340 10/3/uL (150-400); RBC DISTRIBUTION WIDTH 16.1 % (12.0-16.0); RED CELL COUNT 2.75 10/6/uL (4.7-6.1); WHITE BLOOD CELLS 11.2 10/3/uL (4.5-10.5)
[2016-06-29 05:13] LABS: MANUAL DIFF YES %
[2016-06-29 05:32] LABS: BUN (BLOOD UREA NITROGEN) 18 MG/DL (6-23); CALCIUM, SERUM 7.6 MG/DL (8.5-10.4); CHLORIDE, SERUM 103 MMOL/L (96-112); CO2 (CARBON DIOXIDE) 34 MMOL/L (24-34); CREATININE 0.36 MG/DL (0.70-1.30); GFR AFRICAN AMERICAN 137 ML/MIN (>=60); GFR NON AFRICAN AMERICAN 118 ML/MIN (>=60); GLUCOSE, SERUM 176 MG/DL (60-99); PHOSPHORUS, SERUM 2.6 MG/DL (2.5-4.5); POTASSIUM, SERUM 3.8 MMOL/L (3.5-5.3); SODIUM, SERUM 142 MMOL/L (135-148)
[2016-06-29 06:06] LABS: BAND NEUTROPHILS 1 %; LYMPHOCYTES 6 %; LYMPHOCYTES ABSOLUTE (CALC) 0.67 10/3/uL (0.67-4.30); MONOCYTES 5 %; MONOCYTES ABSOLUTE (CALC) 0.56 10/3/uL (0.21-1.20); NEUTROPHILS ABSOLUTE (CALC) 9.97 10/3/uL (2.02-8.40); PLATELET ESTIMATE ADQ (ADEQUATE); SEGMENTED NEUTROPHIL (0) 88 %; TOTAL NUCLEATED CELLS 100
[2016-06-29 06:07] LABS: RBC MORPHOLOGY NORM (NORMAL)
[2016-06-30 04:59] LABS: HEMATOCRIT 26.3 % (40.0-51.0); HEMOGLOBIN 8.3 g/dL (13.6-17.8); MEAN CORPUS HGB CONC 31.6 g/dL (32.0-36.0); MEAN CORPUSCULAR HEMOGLOB 29.1 pg (26.0-34.0); MEAN CORPUSCULAR VOLUME 92.3 fL (80-100); MEAN PLATELET VOLUME 9.3 fL (9.2-13.0); PLATELET COUNT 323 10/3/uL (150-400); RBC DISTRIBUTION WIDTH 16.2 % (12.0-16.0); RED CELL COUNT 2.85 10/6/uL (4.7-6.1); WHITE BLOOD CELLS 10.6 10/3/uL (4.5-10.5)
[2016-06-30 05:00] LABS: MANUAL DIFF YES %
[2016-06-30 05:13] LABS: BUN (BLOOD UREA NITROGEN) 19 MG/DL (6-23); CALCIUM, SERUM 8.2 MG/DL (8.5-10.4); CHLORIDE, SERUM 104 MMOL/L (96-112); CO2 (CARBON DIOXIDE) 32 MMOL/L (24-34); CREATININE 0.47 MG/DL (0.70-1.30); GFR AFRICAN AMERICAN 123 ML/MIN (>=60); GFR NON AFRICAN AMERICAN 106 ML/MIN (>=60); SODIUM, SERUM 143 MMOL/L (135-148)
[2016-06-30 05:29] LABS: GLUCOSE, SERUM 124 MG/DL (60-99); POTASSIUM, SERUM 4.7 MMOL/L (3.5-5.3)
[2016-06-30 05:32] LABS: ANISOCYTOSIS 1+ (5-10/OIF) (0-5/OIF); LYMPHOCYTES 14 %; LYMPHOCYTES ABSOLUTE (CALC) 1.48 10/3/uL (0.67-4.30); MONOCYTES 3 %; MONOCYTES ABSOLUTE (CALC) 0.32 10/3/uL (0.21-1.20); PLATELET ESTIMATE ADQ (ADEQUATE); RBC MORPHOLOGY ABN (NORMAL); SEGMENTED NEUTROPHIL (0) 83 %; TOTAL NUCLEATED CELLS 100
[2016-07-01 04:05] LABS: BASOPHILS 0.1 %; BASOPHILS ABSOLUTE 0.01 10/3/uL (0.0-0.16); EOSINOPHILS 0 %; HEMATOCRIT 25.9 % (40.0-51.0); IMMATURE GRANULOCYTES 2.1 %; IMMATURE GRANULOCYTES ABSOLUTE 0.26 10/3/uL (0.0-0.11); LYMPHOCYTES 5.5 %; LYMPHOCYTES ABSOLUTE 0.69 10/3/uL (0.67-4.30); MEAN CORPUS HGB CONC 30.9 g/dL (32.0-36.0); MEAN CORPUSCULAR HEMOGLOB 28.4 pg (26.0-34.0); MEAN CORPUSCULAR VOLUME 91.8 fL (80-100); MEAN PLATELET VOLUME 9.2 fL (9.2-13.0); MONOCYTES 2.9 %; MONOCYTES ABSOLUTE 0.36 10/3/uL (0.21-1.20); NEUTROPHILS 89.4 %; NEUTROPHILS ABSOLUTE 11.27 10/3/uL (2.02-8.40); PLATELET COUNT 351 10/3/uL (150-400); RBC DISTRIBUTION WIDTH 16.1 % (12.0-16.0); RED CELL COUNT 2.82 10/6/uL (4.7-6.1); WHITE BLOOD CELLS 12.6 10/3/uL (4.5-10.5)
[2016-07-01 04:06] LABS: MANUAL DIFF NO %
[2016-07-01 04:09] LABS: CALCIUM, SERUM 8.2 MG/DL (8.5-10.4); CHLORIDE, SERUM 103 MMOL/L (96-112); CO2 (CARBON DIOXIDE) 33 MMOL/L (24-34); CREATININE 0.56 MG/DL (0.70-1.30); GFR AFRICAN AMERICAN 114 ML/MIN (>=60); GFR NON AFRICAN AMERICAN 98 ML/MIN (>=60); GLUCOSE, SERUM 128 MG/DL (60-99); PHOSPHORUS, SERUM 3.8 MG/DL (2.5-4.5); POTASSIUM, SERUM 4.6 MMOL/L (3.5-5.3); SODIUM, SERUM 143 MMOL/L (135-148)
[2016-07-01 04:11] LABS: BUN (BLOOD UREA NITROGEN) 23 MG/DL (6-23)
[2016-07-01 19:01] LABS: ALBUMIN 2.4 G/DL (3.5-5.0); BUN (BLOOD UREA NITROGEN) 28 MG/DL (6-23); CALCIUM, SERUM 7.8 MG/DL (8.5-10.4); CHLORIDE, SERUM 97 MMOL/L (96-112); CO2 (CARBON DIOXIDE) 36 MMOL/L (24-34); GFR AFRICAN AMERICAN 119 ML/MIN (>=60); GFR NON AFRICAN AMERICAN 103 ML/MIN (>=60); GLUCOSE, SERUM 104 MG/DL (60-99); PHOSPHORUS, SERUM 4.1 MG/DL (2.5-4.5); POTASSIUM, SERUM 4.4 MMOL/L (3.5-5.3); SODIUM, SERUM 140 MMOL/L (135-148)
[2016-07-02 04:44] LABS: BASOPHILS 0.1 %; BASOPHILS ABSOLUTE 0.01 10/3/uL (0.0-0.16); EOSINOPHILS 0.1 %; EOSINOPHILS ABSOLUTE 0.01 10/3/uL (0.0-0.53); HEMATOCRIT 24.4 % (40.0-51.0); HEMOGLOBIN 7.8 g/dL (13.6-17.8); IMMATURE GRANULOCYTES 1.8 %; IMMATURE GRANULOCYTES ABSOLUTE 0.27 10/3/uL (0.0-0.11); LYMPHOCYTES 10.9 %; LYMPHOCYTES ABSOLUTE 1.63 10/3/uL (0.67-4.30); MEAN CORPUSCULAR HEMOGLOB 28.9 pg (26.0-34.0); MEAN CORPUSCULAR VOLUME 90.4 fL (80-100); MEAN PLATELET VOLUME 9.4 fL (9.2-13.0); MONOCYTES 5.3 %; NEUTROPHILS 81.8 %; NEUTROPHILS ABSOLUTE 12.27 10/3/uL (2.02-8.40); PLATELET COUNT 354 10/3/uL (150-400); RBC DISTRIBUTION WIDTH 16.2 % (12.0-16.0)
[2016-07-02 04:45] LABS: MANUAL DIFF NO %
[2016-07-02 05:00] LABS: ALBUMIN 2.2 G/DL (3.5-5.0); BUN (BLOOD UREA NITROGEN) 23 MG/DL (6-23); CALCIUM, SERUM 7.7 MG/DL (8.5-10.4); CHLORIDE, SERUM 99 MMOL/L (96-112); CO2 (CARBON DIOXIDE) 37 MMOL/L (24-34); CREATININE 0.46 MG/DL (0.70-1.30); GFR AFRICAN AMERICAN 124 ML/MIN (>=60); GFR NON AFRICAN AMERICAN 107 ML/MIN (>=60); GLUCOSE, SERUM 82 MG/DL (60-99); PHOSPHORUS, SERUM 3.7 MG/DL (2.5-4.5); POTASSIUM, SERUM 4.2 MMOL/L (3.5-5.3); SODIUM, SERUM 141 MMOL/L (135-148)
[2016-07-02 06:08] LABS: PROCALCITONIN <0.05 ng/mL (<0.5)
[2016-07-02 10:16] LABS: ALLENS TEST Pos; BE (BASE EXCESS) 15.8 MEQ/L (0 +/- 2.5); CARBOXYHEMOGLOBIN 0.3 % (0-3); DEVICE NC; HCO3 (ACTUAL BICARBONATE) 42.7 MEQ/L (23-27); HEMOBLOGIN CONTENT 8.8 G/DL (14-18); INSTRUMENT SERIAL # 35151; METHEMOGLOBIN 0.9 % (0-3); O2 CONTENT 12.2 VOL% (18-24); OPERATOR ID 13624; PCO2 (CO2 TENSION) 69 MMHG (35-45); PO2 (O2 TENSION) 115 MMHG (79-93); SAMPLE Arterial; pH 7.41 (7.37-7.43)
[2016-07-03 03:50] LABS: MEAN CORPUS HGB CONC 32.2 g/dL (32.0-36.0); MEAN CORPUSCULAR HEMOGLOB 29.3 pg (26.0-34.0); MEAN CORPUSCULAR VOLUME 90.8 fL (80-100); MEAN PLATELET VOLUME 9.1 fL (9.2-13.0); PLATELET COUNT 298 10/3/uL (150-400); RBC DISTRIBUTION WIDTH 16.5 % (12.0-16.0); RED CELL COUNT 2.29 10/6/uL (4.7-6.1); WHITE BLOOD CELLS 12.2 10/3/uL (4.5-10.5)
[2016-07-03 03:51] LABS: HEMATOCRIT 20.8 % (40.0-51.0); HEMOGLOBIN 6.7 g/dL (13.6-17.8)
[2016-07-03 03:52] LABS: MANUAL DIFF YES %
[2016-07-03 04:04] LABS: BUN (BLOOD UREA NITROGEN) 24 MG/DL (6-23); CALCIUM, SERUM 7.1 MG/DL (8.5-10.4); CHLORIDE, SERUM 98 MMOL/L (96-112); CO2 (CARBON DIOXIDE) 37 MMOL/L (24-34); CREATININE 0.48 MG/DL (0.70-1.30); GFR AFRICAN AMERICAN 121 ML/MIN (>=60); GFR NON AFRICAN AMERICAN 105 ML/MIN (>=60); GLUCOSE, SERUM 79 MG/DL (60-99); POTASSIUM, SERUM 4.1 MMOL/L (3.5-5.3); SGOT(AST) 13 U/L (5-40); SGPT(ALT) 33 U/L (5-65); SODIUM, SERUM 141 MMOL/L (135-148); TOTAL BILIRUBIN 0.3 MG/DL (0-1.2); TOTAL PROTEIN 4.7 G/DL (6.0-8.5)
[2016-07-03 04:05] LABS: A/G RATIO 1.4 (0.7-1.9); ALBUMIN 2.7 G/DL (3.5-5.0); ALKALINE PHOSPHATASE 51 U/L (45-117)
[2016-07-03 05:28] LABS: BAND NEUTROPHILS 1 %; LYMPHOCYTES 17 %; LYMPHOCYTES ABSOLUTE (CALC) 2.07 10/3/uL (0.67-4.30); MONOCYTES 8 %; MONOCYTES ABSOLUTE (CALC) 0.98 10/3/uL (0.21-1.20); NEUTROPHILS ABSOLUTE (CALC) 9.15 10/3/uL (2.02-8.40); SEGMENTED NEUTROPHIL (0) 74 %; TOTAL NUCLEATED CELLS 100
[2016-07-03 05:29] LABS: PLATELET ESTIMATE ADQ (ADEQUATE); RBC MORPHOLOGY ABN (NORMAL)
[2016-07-03 15:10] LABS: HEMATOCRIT 25.7 % (40.0-51.0); HEMOGLOBIN 8.6 g/dL (13.6-17.8)
[2016-07-04 04:25] LABS: BASOPHILS 0.1 %; BASOPHILS ABSOLUTE 0.02 10/3/uL (0.0-0.16); EOSINOPHILS 0.1 %; EOSINOPHILS ABSOLUTE 0.01 10/3/uL (0.0-0.53); HEMATOCRIT 26.8 % (40.0-51.0); HEMOGLOBIN 8.6 g/dL (13.6-17.8); IMMATURE GRANULOCYTES 2.4 %; IMMATURE GRANULOCYTES ABSOLUTE 0.36 10/3/uL (0.0-0.11); LYMPHOCYTES 10.6 %; LYMPHOCYTES ABSOLUTE 1.57 10/3/uL (0.67-4.30); MEAN CORPUS HGB CONC 32.1 g/dL (32.0-36.0); MEAN CORPUSCULAR HEMOGLOB 29.3 pg (26.0-34.0); MEAN CORPUSCULAR VOLUME 91.2 fL (80-100); MEAN PLATELET VOLUME 9.4 fL (9.2-13.0); MONOCYTES 8.2 %; MONOCYTES ABSOLUTE 1.21 10/3/uL (0.21-1.20); NEUTROPHILS 78.6 %; NEUTROPHILS ABSOLUTE 11.66 10/3/uL (2.02-8.40); PLATELET COUNT 326 10/3/uL (150-400); RBC DISTRIBUTION WIDTH 16.3 % (12.0-16.0); WHITE BLOOD CELLS 14.8 10/3/uL (4.5-10.5)
[2016-07-04 04:26] LABS: MANUAL DIFF NO %; RED CELL COUNT 2.94 10/6/uL (4.7-6.1)
[2016-07-04 04:34] LABS: A/G RATIO 1.1 (0.7-1.9); ALBUMIN 2.7 G/DL (3.5-5.0); ALKALINE PHOSPHATASE 55 U/L (45-117); CHLORIDE, SERUM 102 MMOL/L (96-112); CO2 (CARBON DIOXIDE) 34 MMOL/L (24-34); CREATININE 0.37 MG/DL (0.70-1.30); GFR AFRICAN AMERICAN 135 ML/MIN (>=60); GFR NON AFRICAN AMERICAN 117 ML/MIN (>=60); GLOBULIN 2.4 G/DL (2.5-4.1); POTASSIUM, SERUM 4.3 MMOL/L (3.5-5.3); SGOT(AST) 12 U/L (5-40); SGPT(ALT) 28 U/L (5-65); SODIUM, SERUM 141 MMOL/L (135-148); TOTAL BILIRUBIN 0.4 MG/DL (0-1.2); TOTAL PROTEIN 5.1 G/DL (6.0-8.5)
[2016-07-04 04:35] LABS: BUN (BLOOD UREA NITROGEN) 14 MG/DL (6-23); CALCIUM, SERUM 8.2 MG/DL (8.5-10.4); GLUCOSE, SERUM 107 MG/DL (60-99)
[2016-07-04 04:43] LABS: BE (BASE EXCESS) 8.7 MEQ/L (0 +/- 2.5); CARBOXYHEMOGLOBIN 0.3 % (0-3); DEVICE NC; HCO3 (ACTUAL BICARBONATE) 34.2 MEQ/L (23-27); HEMOBLOGIN CONTENT 9.1 G/DL (14-18); INSTRUMENT SERIAL # 35151; METHEMOGLOBIN 0.9 % (0-3); O2 CONTENT 12.1 VOL% (18-24); OPERATOR ID 35785; PCO2 (CO2 TENSION) 52 MMHG (35-45); PO2 (O2 TENSION) 77 MMHG (79-93); SAMPLE Arterial; pH 7.43 (7.37-7.43)
[2016-07-04 04:44] LABS: ALLENS TEST Pos
[2016-07-05 06:00] LABS: HEMATOCRIT 28.6 % (40.0-51.0); HEMOGLOBIN 9.1 g/dL (13.6-17.8); MEAN CORPUS HGB CONC 31.8 g/dL (32.0-36.0); MEAN CORPUSCULAR HEMOGLOB 29.6 pg (26.0-34.0); MEAN CORPUSCULAR VOLUME 93.2 fL (80-100); PLATELET COUNT 313 10/3/uL (150-400); RBC DISTRIBUTION WIDTH 16.2 % (12.0-16.0); RED CELL COUNT 3.07 10/6/uL (4.7-6.1); WHITE BLOOD CELLS 13.5 10/3/uL (4.5-10.5)
[2016-07-05 06:06] LABS: MANUAL DIFF YES %
[2016-07-05 06:22] LABS: ALBUMIN 2.4 G/DL (3.5-5.0); ALKALINE PHOSPHATASE 57 U/L (45-117); CALCIUM, SERUM 7.9 MG/DL (8.5-10.4); CHLORIDE, SERUM 104 MMOL/L (96-112); CO2 (CARBON DIOXIDE) 33 MMOL/L (24-34); CREATININE 0.39 MG/DL (0.70-1.30); GFR AFRICAN AMERICAN 132 ML/MIN (>=60); GFR NON AFRICAN AMERICAN 114 ML/MIN (>=60); GLOBULIN 2.5 G/DL (2.5-4.1); GLUCOSE, SERUM 100 MG/DL (60-99); POTASSIUM, SERUM 4.2 MMOL/L (3.5-5.3); SGOT(AST) 12 U/L (5-40); SGPT(ALT) 29 U/L (5-65); SODIUM, SERUM 144 MMOL/L (135-148); TOTAL BILIRUBIN 0.6 MG/DL (0-1.2); TOTAL PROTEIN 4.9 G/DL (6.0-8.5)
[2016-07-05 06:23] LABS: BUN (BLOOD UREA NITROGEN) 18 MG/DL (6-23)
[2016-07-05 06:51] LABS: BAND NEUTROPHILS 1 %; IMMATURE GRANS ABSOLUTE (CALC) 0.14 10/3/uL (0.0-0.11); LYMPHOCYTES 9 %; LYMPHOCYTES ABSOLUTE (CALC) 1.22 10/3/uL (0.67-4.30); METAMYELOCYTES 1 %; MONOCYTES 3 %; MONOCYTES ABSOLUTE (CALC) 0.41 10/3/uL (0.21-1.20); NEUTROPHILS ABSOLUTE (CALC) 11.75 10/3/uL (2.02-8.40); PLATELET ESTIMATE ADQ (ADEQUATE); SEGMENTED NEUTROPHIL (0) 86 %; TOTAL NUCLEATED CELLS 100
[2016-07-05 06:52] LABS: OVALOCYTES 1+ (3-10/OIF) (0-2/OIF); POLYCHROMASIA 1+ (2-5/OIF) (0-1/OIF); TOXIC GRANULATION 1+
[2016-07-06 02:51] LABS: ASCORBIC ACID (UR NOT ORDER) NEG (NEG); BILIRUBIN, URINE NEGATIVE (NEG); KETONE, URINE NEGATIVE (NEG); LEUKOCYTE ESTERASE(NOT OR LARGE (NEG); WBC (NOT ORDERED) (RFLEX) 86 (0-5)
[2016-07-07 04:34] LABS: ALLENS TEST Pos; BE (BASE EXCESS) 6.7 MEQ/L (0 +/- 2.5); DEVICE NC; HCO3 (ACTUAL BICARBONATE) 31.3 MEQ/L (23-27); HEMOBLOGIN CONTENT 10.7 G/DL (14-18); INSTRUMENT SERIAL # 35151; METHEMOGLOBIN 0.8 % (0-3); O2 CONTENT 14.5 VOL% (18-24); OPERATOR ID 31061; PCO2 (CO2 TENSION) 45 MMHG (35-45); PO2 (O2 TENSION) 83 MMHG (79-93); SAMPLE Arterial; pH 7.46 (7.37-7.43)
[2016-07-07 04:59] LABS: BASOPHILS 0.1 %; BASOPHILS ABSOLUTE 0.01 10/3/uL (0.0-0.16); EOSINOPHILS 0 %; HEMATOCRIT 26.4 % (40.0-51.0); HEMOGLOBIN 8.5 g/dL (13.6-17.8); IMMATURE GRANULOCYTES ABSOLUTE 0.27 10/3/uL (0.0-0.11); LYMPHOCYTES 8.9 %; LYMPHOCYTES ABSOLUTE 1.22 10/3/uL (0.67-4.30); MEAN CORPUS HGB CONC 32.2 g/dL (32.0-36.0); MEAN CORPUSCULAR HEMOGLOB 29.8 pg (26.0-34.0); MEAN CORPUSCULAR VOLUME 92.6 fL (80-100); MEAN PLATELET VOLUME 9.4 fL (9.2-13.0); MONOCYTES 6.2 %; MONOCYTES ABSOLUTE 0.85 10/3/uL (0.21-1.20); NEUTROPHILS 82.8 %; NEUTROPHILS ABSOLUTE 11.39 10/3/uL (2.02-8.40); PLATELET COUNT 358 10/3/uL (150-400); RBC DISTRIBUTION WIDTH 16.6 % (12.0-16.0); RED CELL COUNT 2.85 10/6/uL (4.7-6.1); WHITE BLOOD CELLS 13.7 10/3/uL (4.5-10.5)
[2016-07-07 05:00] LABS: MANUAL DIFF NO %
[2016-07-07 06:48] LABS: A/G RATIO 0.9 (0.7-1.9); ALBUMIN 2.3 G/DL (3.5-5.0); ALKALINE PHOSPHATASE 58 U/L (45-117); BUN (BLOOD UREA NITROGEN) 16 MG/DL (6-23); CALCIUM, SERUM 7.8 MG/DL (8.5-10.4); CHLORIDE, SERUM 103 MMOL/L (96-112); CO2 (CARBON DIOXIDE) 34 MMOL/L (24-34); CREATININE 0.33 MG/DL (0.70-1.30); GFR AFRICAN AMERICAN 142 ML/MIN (>=60); GFR NON AFRICAN AMERICAN 122 ML/MIN (>=60); GLOBULIN 2.5 G/DL (2.5-4.1); GLUCOSE, SERUM 110 MG/DL (60-99); POTASSIUM, SERUM 4.7 MMOL/L (3.5-5.3); SGOT(AST) 22 U/L (5-40); SGPT(ALT) 50 U/L (5-65); SODIUM, SERUM 143 MMOL/L (135-148); TOTAL BILIRUBIN 0.2 MG/DL (0-1.2); TOTAL PROTEIN 4.8 G/DL (6.0-8.5)
[2016-07-08 04:15] LABS: BASOPHILS 0.1 %; BASOPHILS ABSOLUTE 0.01 10/3/uL (0.0-0.16); EOSINOPHILS 0.1 %; EOSINOPHILS ABSOLUTE 0.01 10/3/uL (0.0-0.53); HEMATOCRIT 27.1 % (40.0-51.0); HEMOGLOBIN 8.6 g/dL (13.6-17.8); IMMATURE GRANULOCYTES 2.6 %; IMMATURE GRANULOCYTES ABSOLUTE 0.36 10/3/uL (0.0-0.11); LYMPHOCYTES 9.4 %; LYMPHOCYTES ABSOLUTE 1.31 10/3/uL (0.67-4.30); MEAN CORPUS HGB CONC 31.7 g/dL (32.0-36.0); MEAN CORPUSCULAR HEMOGLOB 29.5 pg (26.0-34.0); MEAN CORPUSCULAR VOLUME 92.8 fL (80-100); MEAN PLATELET VOLUME 9.3 fL (9.2-13.0); MONOCYTES 5.9 %; MONOCYTES ABSOLUTE 0.82 10/3/uL (0.21-1.20); NEUTROPHILS 81.9 %; NEUTROPHILS ABSOLUTE 11.37 10/3/uL (2.02-8.40); PLATELET COUNT 347 10/3/uL (150-400); RBC DISTRIBUTION WIDTH 16.7 % (12.0-16.0); RED CELL COUNT 2.92 10/6/uL (4.7-6.1); WHITE BLOOD CELLS 13.9 10/3/uL (4.5-10.5)
[2016-07-08 04:17] LABS: MANUAL DIFF NO %
[2016-07-08 04:32] LABS: A/G RATIO 0.9 (0.7-1.9); ALBUMIN 2.4 G/DL (3.5-5.0); ALKALINE PHOSPHATASE 60 U/L (45-117); BUN (BLOOD UREA NITROGEN) 13 MG/DL (6-23); CALCIUM, SERUM 7.8 MG/DL (8.5-10.4); CHLORIDE, SERUM 103 MMOL/L (96-112); CO2 (CARBON DIOXIDE) 33 MMOL/L (24-34); CREATININE 0.35 MG/DL (0.70-1.30); GFR AFRICAN AMERICAN 138 ML/MIN (>=60); GFR NON AFRICAN AMERICAN 119 ML/MIN (>=60); GLOBULIN 2.6 G/DL (2.5-4.1); GLUCOSE, SERUM 103 MG/DL (60-99); POTASSIUM, SERUM 4.4 MMOL/L (3.5-5.3); SGOT(AST) 13 U/L (5-40); SGPT(ALT) 42 U/L (5-65); SODIUM, SERUM 143 MMOL/L (135-148); TOTAL BILIRUBIN 0.3 MG/DL (0-1.2)
== END 2016-07-08 15:59 | DRG 208 ==
LOC: ER 18:01 → CCU 18:08 → 7NO 07-01 14:35
PROVIDERS: Emergency Medicine; Hospitalist; Internal Medicine; Internal Medicine Critical Care Medicine
PROC: 5A1945Z Respiratory Ventilation, 24-96 Consecutive Hours (ICD-10-PCS; principal; 2016-06-25)
PROC: 0BH17EZ Insertion of Endotracheal Airway into Trachea, Via Natural or Artificial Opening (ICD-10-PCS; 2016-06-25)
PROC: 02HV33Z Insertion of Infusion Device into Superior Vena Cava, Percutaneous Approach (ICD-10-PCS; 2016-06-28)
PROC: 4A02X4A Measurement of Cardiac Electrical Activity, Guidance, External Approach (ICD-10-PCS; 2016-06-28)
PROC: 5A09357 Assistance with Respiratory Ventilation, Less than 24 Consecutive Hours, Continuous Positive Airway Pressure (ICD-10-PCS; 2016-07-04)
DX: J96.22 Acute and chronic respiratory failure with hypercapnia (principal); G93.41 Metabolic encephalopathy; J44.1 Chronic obstructive pulmonary disease with (acute) exacerbation; I50.32 Chronic diastolic (congestive) heart failure; I48.91 Unspecified atrial fibrillation; Z51.5 Encounter for palliative care; I10 Essential (primary) hypertension; G89.4 Chronic pain syndrome; R62.7 Adult failure to thrive; K59.00 Constipation, unspecified; T38.0X5A Adverse effect of glucocorticoids and synthetic analogues, initial encounter; F17.210 Nicotine dependence, cigarettes, uncomplicated; Z79.01 Long term (current) use of anticoagulants; Z82.49 Family history of ischemic heart disease and other diseases of the circulatory system; Z87.01 Personal history of pneumonia (recurrent)
CPT/HCPCS: 31500; 31720; 36415; 36569; 36600; 70450; 71010; 74000; 80048; 80053; 80069; 80076; 80305; 81001; 82140; 82805; 82962; 83605; 83735; 83880; 84100; 84145; 84484; 85014; 85018; 85025; 85610; 85730; 86850; 86900; 86901; 86920; 87040; 87070; 87077; 87086; 87186; 87205; 87641; 92610-GN; 93005; 94002; 94003; 94640; 94660; 94667; 94668; 94762; 94770; 96374; 96375; 97110-GP; 97163-GP; 97530-GP; 99291; A9270-GY; C1751; C1894; C9113; J0330; J1120; J1940; J2310; J2405; J2920; J2930; J3010; P9016; P9047

== ENCOUNTER 2016-07-14 05:17 | Inpatient (IN) | payer BC ==
--- NOTE | ~2016-07-14 | HP ---
History And Physical [place] [id number] [facility] [place]. [address] NAME: VALENTE NAVA : 37 STATUS : ADM IN [facility]#: [id number] AGE: 80 ADM/REG DATE : 07/14/16 MR#: [id number] REPORT SERV DATE: 07/14/16 DICTATED BY: DATE: REPORT STATUS : Draft TRANSCRIBED BY: MODL DATE: 07/14/16 DATE OF ADMISSION: 07/14/2016 The patient is admitted to the [place]. CHIEF COMPLAINT: Shortness of breath. HISTORY OF PRESENT ILLNESS: Mr. Nava is a 80-year-old white male with previously diagnosed end-stage COPD, with frequent admissions for acute on chronic hypercapnic hypoxemic respiratory failure. In fact, he was most recently admitted to the hospital on 06/25 and discharged on 07/08 to [facility] for acute on chronic hypercapnic respiratory failure. During that hospitalization, he required intubation and was treated with mechanical ventilation, bronchodilators, inhaled steroids, systemic steroids, and antibiotics. He also had septic shock at that admission briefly requiring Levophed. Palliative Care followed the patient during that hospitalization, and apparently full determination of code status could not be made at that admission. From the notes, it appears that the patient remains a full code with "limited efforts." He was discharged to [facility] with nocturnal BiPAP and per facility notes and discussion with ER physician, there were questions of BiPAP noncompliance. Apparently, the patient or family or perhaps staff at [facility] felt that BiPAP may have been making his shortness of breath worse, so they had not recently been utilizing it. The patient had low oxygen saturations at [facility] this morning and was transported to the [facility] by EMS for further evaluation. Initial blood gas showed pH 7.33, pCO2 77, PO2 81, oxygen saturations 94% on FiO2 45%. The patient was placed on BiPAP and three hours later, pH has normalized at 7.38 with pCO2 69, PO2 70, oxygen saturation 93% on FiO2 35% with a rate of 20 and BiPAP setting 20/8. The patient is alert currently, opens his eyes, reports decreasing shortness of breath and feeling better. The emergency department physician initially requested admission to the IMCU, however, no IMCU beds are presently available, and as the patient does utilize nocturnal BiPAP at baseline and is a known CO2 retainer, with no present evidence of need for intubation or ICU level care, he is being admitted to [facility]. Here in the emergency department, he has also received DuoNebs and Solu-Medrol. REVIEW OF SYSTEMS: A 14-point review of systems was obtained and is negative except as dictated in the history of present illness. PAST MEDICAL HISTORY: 1. End-stage COPD-oxygen and BiPAP dependent. 2. Chronic hypercapnic hypoxemic respiratory failure. 3. Hypertension. 4. History of atrial fibrillation-chronic, on chronic anticoagulation. 5. 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 [address] NAME: VALENTE NAVA : 36 STATUS : ADM IN [facility]#: [id number] AGE: 80 ADM/REG DATE : 07/14/16 MR#: [id number] REPORT SERV DATE: 07/14/16 DICTATED BY: DATE: REPORT STATUS : Draft TRANSCRIBED BY: MODL DATE: 07/14/1605/2016 of 35%. 6. Urinary tract infections-presently indwelling Chan catheter from last discharge. 7. Pulmonary cachexia and failure to thrive. 8. Chronic anemia-iron studies demonstrative of anemia of chronic disease, last admission. No iron deficiency. ALLERGIES: NO KNOWN DRUG ALLERGIES. MEDICATIONS: MAR from [facility] was reviewed pertinent for, 1. DuoNebs three times a day. 2. Amiodarone 200 mg p.o. twice a day. 3. Aspirin 81 mg p.o. daily. 4. Dulcolax 10 mg per rectum as needed. 5. BuSpar 10 mg p.o. twice a day. 6. Coreg 3.125 mg p.o. twice a day-hold if systolic blood pressure less than 110. 7. Digoxin 0.125 mg p.o. after lunch daily. 8. Folic acid 1 mg p.o. q.a.m. 9. Lasix 20 mg p.o. q.a.m. 10.Guaifenesin 100 mg p.o. as needed. 11.Lispro sliding scale. 12.Lisinopril 2.5 mg p.o. daily-hold for systolic less than 110. 13.Melatonin 3 mg p.o. at bedtime. 14.Potassium chloride 10 mEq p.o. q.a.m. 15.Seroquel 50 mg p.o. twice a day. 16.Xarelto 20 mg p.o. daily. 17.Flomax 0.4 mg p.o. daily. 18.Spiriva two puffs inhaled daily. SOCIAL HISTORY: The patient currently resides at [facility]. Reportedly has a son who assists him with medical decision making, who is not currently present. The patient has a long history of smoking, but is not currently smoking. Denies any alcohol or illicit drug use. 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 FAMILY HISTORY: Pertinent for cirrhosis in his father and heart disease in his mother. PHYSICAL EXAMINATION: VITAL SIGNS: Blood pressure 119/54, pulse 79, respirations 19, oxygen saturations 96% on 15 L initially-2 to 4 L oxygen dependent at baseline. Current oxygen saturations 96% on FiO2 35 and the patient is afebrile. GENERAL: This is a chronically ill-appearing white male, in no acute distress. Opens eyes to voice, nods yes/no to questions, and answers appropriately. HEENT: Normocephalic, atraumatic. Pupils are equally round and reactive to light. No icterus. No conjunctival pallor. No sinus tenderness to palpation. No nasal drainage. Oropharynx not examined due to presence of BiPAP. NECK: Supple with no jugular venous distention. No lymphadenopathy. No bruits. CARDIOVASCULAR: Irregularly irregular with no murmurs, rubs, or gallops. LUNGS: Inspiratory rhonchi, bilateral bases with faint end-expiratory wheezing. History And Physical [address] [address] NAME: MINORVALENTE : 36 STATUS : ADM IN [facility]#: [id number] AGE: 80 ADM/REG DATE : 07/14/16 MR#: [id number] REPORT SERV DATE: 07/14/16 DICTATED BY: DATE: REPORT STATUS : Draft TRANSCRIBED BY: NIDHI DATE: 07/14/16 ABDOMEN: Soft, nontender, and nondistended with normoactive bowel sounds in four quadrants and no hepatosplenomegaly. EXTREMITIES: Asymmetric, left lower extremity edema, 2+, pitting and doughy. Palpable pulses bilaterally. No edema in the right lower extremity. Negative Homans sign bilaterally. NEUROLOGIC: Cranial nerve testing was deferred at present. The patient moves all four limbs spontaneously and to command. Bilateral patellar and brachioradialis tendon reflexes are intact. Sensation is intact to touch in all four extremities. LABORATORY DATA: Blood gas is as stated above with current pH 7.38, pCO2 69, PO2 70, oxygen saturation 94% on FiO2 35%. White blood cell count is 15.8, hemoglobin 7.1, hematocrit 22.9 last discharge value hemoglobin 8.4, platelets 249. INR is 2.5 on Xarelto. Lactate 0.7. Procalcitonin negative at 0.12. Sodium 147, potassium 4.3, chloride 104, bicarb 36, BUN 25, creatinine 0.5, glucose 109, calcium 7.8, magnesium 2.1, total protein 5.2, albumin 2.2. Liver enzymes normal. Troponin 0.04. BNP is pending. IMAGIN. A portable chest x-ray by my read shows diffuse bilateral pulmonary edema and acute congestive heart failure exacerbation. 2. EKG shows atrial fibrillation with rate of [address] depression in lateral leads which is stable from prior. IMPRESSION: 1. Acute on chronic hypercapnic hypoxemic respiratory failure, multifactorial and due to reported BiPAP noncompliance, acute exacerbation of chronic obstructive pulmonary disease on end-stage chronic obstructive pulmonary disease, acute exacerbation of mixed systolic and diastolic congestive heart failure with ejection fraction of 35%. 2. Anemia-suspect hemodilutional. Prior labs consistent with anemia of chronic disease. 3. Asymmetric left lower extremity edema-rule out deep venous thrombosis. 4. Chronic atrial fibrillation, rate controlled and anticoagulated. 5. History of urinary tract infections with history of urinary retention and a currently indwelling Chan catheter with purulent-appearing urine. 6. Leukocytosis. 7. Pulmonary cachexia and failure to thrive. PLAN: 1. I was contacted for admission, but there are no current [facility] beds available, therefore will admit the patient to [address] [place] [address] under the care of attending, Dr. Geronimo Gillette as he is not currently requiring intubation, is nonacidotic, and is protecting his airway as well as improving on current BiPAP therapy. 2. Repeat ABG in an hour. 3. Continue intermittent and nocturnal BiPAP on the floor. 4. Diurese with IV Bumex. 5. Patient has been started on antibiotics including Rocephin and azithromycin. Solu- Medrol will be continued as well as nebulizers including nebulized steroids. 6. Recheck hemoglobin in the morning and transfuse if indicated. 7. Obtain a Doppler ultrasound of the left lower extremity. History And Physical [address] [address] NAME: VALENTE NAVA : 36 STATUS : ADM IN PAT#: [id number] AGE: 80 ADM/REG DATE : 07/14/16 MR#: [id number] REPORT SERV DATE: 07/14/16 DICTATED BY: DATE: REPORT STATUS : Draft TRANSCRIBED BY: MODL DATE: 07/14/16 8. Check urinalysis and exchange Chan catheter if indicated. 9. I have asked Palliative Care and Pulmonology to be involved to clarify the goals of care and the patient's code status given frequent readmissions and potential inappropriateness of full code status. Additional recommendations pending results of above. CHANDRIKA/NIDHI Nestor Mojica M.D. / [id number] CC: Geronimo Gillette MD
--- NOTE | ~2016-07-14 | CN ---
Consultation Report [facility] [address] [place]. [address] NAME: VALENTE NAVA : 36 STATUS : ADM IN [facility]#: [id number] AGE: 80 ADM/REG DATE : 07/14/16 MR#: [id number] REPORT SERV DATE: 07/14/16 DICTATED BY: LISA LARRY DATE: 07/14/16 REPORT STATUS : Draft TRANSCRIBED BY: MODL DATE: 07/14/16 PULMONARY CONSULTATION DATE OF CONSULTATION: 07/14/2016 REASON FOR CONSULTATION: Acute on chronic respiratory failure. HISTORY OF PRESENT ILLNESS: Mr. Nava is a 80-year-old white male smoker with severe COPD and chronic hypoxemic/hypercapnic respiratory failure, who was readmitted from [facility] four days after discharge from this hospital after treatment for COPD exacerbation. Per the available information, he was sent here secondary to low oxygen saturations despite supplemental oxygen at a flow rate of 4 L/minute. Since his admission here several hours ago, he has been treated with Bumex and has been on BiPAP. Currently, he feels significantly better. Denies shortness of breath and cough. PAST MEDICAL HISTORY: 1. Severe COPD. 2. Chronic hypoxemic/hypercapnic respiratory failure - on supplemental oxygen at a flow rate of 4 L/minute. Additionally, he should be on BiPAP when sleeping, but his son at the bedside feels quite sure "he was not wearing it while at [facility].". 3. Smoking/tobacco addiction. 4. Previous Haemophilus influenzae pneumonia. 5. Hypertension. 6. Recent failure to thrive. 7. Benign prostatic hypertrophy. 8. Recurrent urinary tract infection. 9. Low back pain. 10.Systolic and diastolic heart failure with recent ejection fraction of 35%. 11.Atrial fibrillation. FAMILY HISTORY: The patient's son at the bedside states the patient denies a family history of pulmonary diseases. SOCIAL HISTORY: Mr. Nava has a long history of smoking. Per his son, he has smoked for "most of his life." He was smoking up until he was hospitalized here 06/25/2016. 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 He denies ethanol intake, chewing tobacco, or past/present drug use. He has one biological son who accompanies him today. MEDICATIONS: Outpatient and inpatient medications were reviewed and are as documented in the record. As an outpatient, his pulmonary medications were Spiriva Respimat 2.5 mcg once daily and DuoNebs three times daily. Additionally, he was on Lasix 20 mg once daily as an outpatient. Consultation Report [address] [place]. [address] NAME: VALENTE NAVA : 37 STATUS : ADM IN PAT#: [id number] AGE: 80 ADM/REG DATE : 07/14/16 MR#: [id number] REPORT SERV DATE: 07/14/16 DICTATED BY: LISA LARRY DATE: 07/14/16 REPORT STATUS : Draft TRANSCRIBED BY: MODMercedez DATE: 07/14/16 ALLERGIES: NO KNOWN DRUG ALLERGIES. REVIEW OF SYSTEMS: A limited system review was conducted and is remarkable for the symptoms as described in the history of present illness. He denies any acute pain. PHYSICAL EXAMINATION: VITAL SIGNS: Temperature 98.2 degrees, heart rate 76, blood pressure 105/58, respiratory rate 22, and oxygen saturation 89% on supplemental oxygen at 4 L/minute. GENERAL: Elderly white male, sleeping but awakens easily. Appropriate. No apparent distress. Wearing BiPAP without problems. HEENT: Normocephalic. Atraumatic. There is no scleral icterus. The conjunctivae are clear. LUNGS: Wet cough during exam. There are coarse rhonchi throughout. There are no wheezes. There are bibasilar crackles. HEART: Regular rate and rhythm. No ectopy was noted. ABDOMEN: Soft. Nontender. Nondistended. There are normal bowel sounds in all four quadrants. BILATERAL EXTREMITIES: There is 2+ pitting edema in both legs. There is no cyanosis or clubbing. NEUROLOGICAL: Limited exam was conducted. It was found to be nonfocal. SKIN: Generalized pallor. No rashes were noted. LABORATORY RESULTS: The labs were reviewed and are as documented in the record. Notable labs include a white blood cell count of 15.8, procalcitonin 0.06, BNP 173.1. Arterial blood gas: 1. PH 7.38, pCO2 of 69, pO2 of 70 on BiPAP 20/8 with an FiO2 of 35%. 2. ABG, II, pH 7.40, pCO2 of 63, and pO2 of 82 on BiPAP 20/8 with an FiO2 of 35%. 3. Chest x-ray done this admission revealed cardiomegaly as well as interstitial edema with the right being significantly worse than the left. ASSESSMENT AND PLAN: Mr. Nava is a 80-year-old white male smoker with severe chronic obstructive pulmonary disease and associated chronic hypoxemic/hypercapnic respiratory failure. He is admitted today with acute respiratory compromise likely secondary to volume overload. His pCO2 is now returned to baseline with short treatment with BiPAP. He is currently appropriate. He has been treated with Bumex in addition to his Lasix. Additionally, he has been receiving bronchodilators. He has been started on Rocephin and azithromycin as well as Solu-Medrol. Recommend to use BiPAP overnight plus as needed. He does not seem to need continuous BiPAP at this point. His baseline pCO2 is likely in the 60s and was 63 on his most recent blood gas. I agree with diuresis. He has been started on Bumex for the next several days along with Consultation Report [address] [address] NAME: VALENTE NAVA : 37 STATUS : ADM IN [facility]#: [id number] AGE: 80 ADM/REG DATE : 07/14/16 MR#: [id number] REPORT SERV DATE: 07/14/16 DICTATED BY: LISA LARRY DATE: 07/14/16 REPORT STATUS : Draft TRANSCRIBED BY: NIDHI DATE: 07/14/16 his usual Lasix. Recommend titrating supplemental oxygen to maintain his oxygen saturation at a minimum of 89%. He may need high-flow nasal cannula or Vapotherm to achieve this. I agree with bronchodilators. We would increase his Pulmicort dose to 1 mg via nebulization twice daily. There is no evidence of infection so his antibiotics could be discontinued. As noted, he is on systemic steroids. We would continue these for now, but if he responds well to diuretics then the systemic steroids could be discontinued. He will have a followup chest x-ray tomorrow. Code status was discussed with the patient and his son at bedside. Mr. Nava and the son indicate that he wants all resuscitative measures. He wants to be a full code. His son did state that Mr. Nava will not agree to a tracheostomy if ever needed, but otherwise, he is agreeable to all therapeutic measures. Thank you very much for this consultation. PS/MODL Lisa Larry M.D. / [id number] CC: Geronimo Gillette MD UNKNOWN
--- NOTE | ~2016-07-14 | DS ---
Discharge Summary [facility] [address] [place]. [address] NAME: VALENTE NAVA : 37 STATUS : DIS IN PAT#: [id number] AGE: 80 ADM/REG DATE : 07/14/16 MR#: [id number] REPORT SERV DATE: 07/18/16 DICTATED BY: KANDIS SMITH DATE: 07/17/16 REPORT STATUS : Draft TRANSCRIBED BY: MODL DATE: 07/17/16 ADMISSION DATE: 07/14/2016 DISCHARGE DATE: 07/17/2016 HISTORY OF PRESENT ILLNESS: Mr. Nava is a 80-year-old male with a history of end-stage COPD with frequent admissions for acute on chronic hypercapnic hypoxic respiratory failure, who presented to the hospital with a complaint of shortness of breath. For further details, please refer to H and P dictated on 07/14/2016. HOSPITAL COURSE: Upon presentation to the hospital, the patient was diagnosed with hypercapnic hypoxic respiratory failure. Pulmonology was subsequently consulted. Please refer to the consultation note by Pulmonology dictated on 07/14/2016. The patient is well known to me. The last time the patient was in the hospital was under my care. During that visit, the patient initially presented to the ICU, required intubation. He was subsequently extubated and then transferred to the floor. On the floor, the patient developed hypercapnia again requiring placing on a BiPAP machine. Given his frequent presentation with hypercapnic hypoxic respiratory failure, Case Management was consulted to assist in procurement of BiPAP with thought processes being that if the patient were placed on BiPAP intermittently, would help with his hypercapnia. Equipment was procured for the patient, and the patient was sent to a longterm facility. However, the patient still developed hypercapnia requiring readmission into the hospital. I assumed care of the patient this admission on 07/16/2016. At the time of my assumption of care, the patient had been seen by Palliative Care and per discussion with family and the patient, they were agreeable for the patient to be discharged to hospice upon being hemodynamically stable. The patient, while in-house, has been managed with supplemental oxygen with BiPAP at night. On this therapy, the patient has remained somewhat stable. He has not developed CO2 narcosis. He has remained alert and oriented x3. Given completion of workup and given that the patient is approaching end stages of his disease with no further medical intervention available to reverse this current pathology, the patient will be discharged to hospice care. Plan has been discussed with the patient, who voices understanding and is agreeable with this plan. NICHOL/NIDHI Kandis Smith MD / [id number] CC: MD BRANDON Hilton
[2016-07-14 05:03] LABS: BE (BASE EXCESS) 12.5 MEQ/L (0 +/- 2.5); CARBOXYHEMOGLOBIN 2.4 % (0-3); HEMOBLOGIN CONTENT 7.6 G/DL (14-18); INSTRUMENT SERIAL # 8087; METHEMOGLOBIN 0.4 % (0-3); O2 CONTENT 9.9 VOL% (18-24); PCO2 (CO2 TENSION) 77 MMHG (35-45); PO2 (O2 TENSION) 81 MMHG (79-93); SAMPLE Arterial; pH 7.33 (7.37-7.43)
[2016-07-14 05:14] LABS: BASOPHILS 0.1 %; BASOPHILS ABSOLUTE 0.01 10/3/uL (0.0-0.16); EOSINOPHILS 0.4 %; EOSINOPHILS ABSOLUTE 0.07 10/3/uL (0.0-0.53); HEMOGLOBIN 7.1 g/dL (13.6-17.8); IMMATURE GRANULOCYTES 1.1 %; IMMATURE GRANULOCYTES ABSOLUTE 0.17 10/3/uL (0.0-0.11); LYMPHOCYTES 11.9 %; LYMPHOCYTES ABSOLUTE 1.88 10/3/uL (0.67-4.30); MEAN CORPUSCULAR HEMOGLOB 29.3 pg (26.0-34.0); MEAN CORPUSCULAR VOLUME 94.6 fL (80-100); MONOCYTES 5.1 %; NEUTROPHILS 81.4 %; NEUTROPHILS ABSOLUTE 12.89 10/3/uL (2.02-8.40); PLATELET COUNT 249 10/3/uL (150-400); RBC DISTRIBUTION WIDTH 16.9 % (12.0-16.0); RED CELL COUNT 2.42 10/6/uL (4.7-6.1); WHITE BLOOD CELLS 15.8 10/3/uL (4.5-10.5)
[~2016-07-14 05:17] MED LIST changes: +ASAB PO; +CORDARONE PO; +COREG3 PO; +FLOMAX4 PO; +FOLIC PO; +KLOR-CON 1010 MEQ PO; +L20 PO; +LAN125 PO; +MULTIVIT/MIN PO; +PRIN2.5 PO; +SPIRIVA INH
[2016-07-14 05:22] LABS: INTERNATIONAL NORMAL RATI 2.5 UNITS (-); PARTIAL THROMBO TIME 47.3 SEC (22.5-37.2)
[2016-07-14 05:24] LABS: HEMATOCRIT 22.9 % (40.0-51.0); MANUAL DIFF NO %
[2016-07-14 05:33] LABS: CALCIUM, SERUM 7.8 MG/DL (8.5-10.4); CHEST PAIN PROFILE TAT 0 Hrs 23 Mins; CHLORIDE, SERUM 104 MMOL/L (96-112); CO2 (CARBON DIOXIDE) 36 MMOL/L (24-34); CREATININE 0.52 MG/DL (0.70-1.30); GFR AFRICAN AMERICAN 118 ML/MIN (>=60); GFR NON AFRICAN AMERICAN 101 ML/MIN (>=60); POTASSIUM, SERUM 4.3 MMOL/L (3.5-5.3); SODIUM, SERUM 147 MMOL/L (135-148); TROPONIN I 0.04 NG/ML (<0.05)
[2016-07-14 05:35] LABS: PROTIME (NOT ORD) 26.5 SEC (12.0-14.5)
[2016-07-14 05:36] LABS: BUN (BLOOD UREA NITROGEN) 25 MG/DL (6-23); GLUCOSE, SERUM 109 MG/DL (60-99)
[2016-07-14] MEDS ORDERED: ALBUTEROL0.083 % INH (06:14)
[2016-07-14] MEDS ORDERED: ASAB PO ×2 (06:15→15:07)
[2016-07-14] MEDS ORDERED: CORDARONE PO (06:15)
[2016-07-14] MEDS ORDERED: BUSPAR10 PO ×2 (06:16→15:08)
[2016-07-14] MEDS ORDERED: COREG3 PO ×2 (06:17→15:13)
[2016-07-14] MEDS ORDERED: FOLIC PO ×2 (06:19→15:44)
[2016-07-14] MEDS ORDERED: LAN125 PO ×2 (06:19→15:14)
[2016-07-14] MEDS ORDERED: L20 PO ×2 (06:20→15:45)
[2016-07-14] MEDS ORDERED: HUMALOGPEN (06:23)
[2016-07-14] MEDS ORDERED: PRIN2.5 PO ×2 (06:24→15:46)
[2016-07-14] MEDS ORDERED: MELA3 PO ×2 (06:25→15:46)
[2016-07-14] MEDS ORDERED: KDUR10 PO ×2 (06:25→15:46)
[2016-07-14] MEDS ORDERED: SEROQUEL50 MG PO ×2 (06:28→15:47)
[2016-07-14] MEDS ORDERED: FLOMAX4 PO ×2 (06:42→15:49)
[2016-07-14] MEDS ORDERED: SPIRIVA INH ×2 (06:42→15:48)
[2016-07-14] MEDS ORDERED: XARELTO20 MG PO ×2 (06:43→15:49)
[2016-07-14] MEDS ORDERED: BISR PR (06:46)
[2016-07-14] MEDS ORDERED: ENEMA (06:48)
[2016-07-14] MEDS ORDERED: SILTUSSIN100 MG/5 M PO ×2 (06:50→15:50)
[2016-07-14 07:37] LABS: ALLENS TEST Pos; BE (BASE EXCESS) 12.8 MEQ/L (0 +/- 2.5); BIPAP 20/8 cm.H2O; HCO3 (ACTUAL BICARBONATE) 39.6 MEQ/L (23-27); HEMOBLOGIN CONTENT 7.7 G/DL (14-18); INSTRUMENT SERIAL # 8087; METHEMOGLOBIN 0.3 % (0-3); O2 CONTENT 9.9 VOL% (18-24); OPERATOR ID 32214; PCO2 (CO2 TENSION) 69 MMHG (35-45); PO2 (O2 TENSION) 70 MMHG (79-93); SAMPLE Arterial; pH 7.38 (7.37-7.43)
[2016-07-14 08:02] LABS: A/G RATIO 0.7 (0.7-1.9); ALBUMIN 2.2 G/DL (3.5-5.0); ALKALINE PHOSPHATASE 61 U/L (45-117); SGOT(AST) 16 U/L (5-40); SGPT(ALT) 32 U/L (5-65); TOTAL BILIRUBIN 0.2 MG/DL (0-1.2); TOTAL PROTEIN 5.2 G/DL (6.0-8.5)
[2016-07-14 08:55] LABS: PROCALCITONIN 0.12 ng/mL (<0.5)
[2016-07-14 09:49] LABS: ALLENS TEST Pos; BE (BASE EXCESS) 11.7 MEQ/L (0 +/- 2.5); BIPAP 20/8 cm.H2O; CARBOXYHEMOGLOBIN 2.1 % (0-3); HCO3 (ACTUAL BICARBONATE) 37.9 MEQ/L (23-27); HEMOBLOGIN CONTENT 7.6 G/DL (14-18); INSTRUMENT SERIAL # 8087; METHEMOGLOBIN 0.4 % (0-3); O2 CONTENT 10.1 VOL% (18-24); OPERATOR ID 32214; PCO2 (CO2 TENSION) 63 MMHG (35-45); PO2 (O2 TENSION) 82 MMHG (79-93); SAMPLE Arterial
[2016-07-14 12:10] LABS: TROPONIN I 0.03 NG/ML (<0.05)
[2016-07-14 12:41] LABS: PROCALCITONIN 0.06 ng/mL (<0.5)
[2016-07-14] MEDS ORDERED: ALBUTEROL5 INH (15:06)
[2016-07-14] MEDS ORDERED: PACERONE200 MG PO (15:07)
[2016-07-14] MEDS ORDERED: BUSPAR5 PO (15:09)
[2016-07-14] MEDS ORDERED: HUMALOG SC (15:45)
[2016-07-14] MEDS ORDERED: P20 PO (15:47)
[2016-07-15 05:50] LABS: BUN (BLOOD UREA NITROGEN) 25 MG/DL (6-23); CALCIUM, SERUM 7.7 MG/DL (8.5-10.4); CHLORIDE, SERUM 100 MMOL/L (96-112); CO2 (CARBON DIOXIDE) 38 MMOL/L (24-34); CREATININE 0.49 MG/DL (0.70-1.30); GFR AFRICAN AMERICAN 120 ML/MIN (>=60); GFR NON AFRICAN AMERICAN 104 ML/MIN (>=60); POTASSIUM, SERUM 4.3 MMOL/L (3.5-5.3); SODIUM, SERUM 144 MMOL/L (135-148)
[2016-07-15 05:56] LABS: GLUCOSE, SERUM 141 MG/DL (60-99)
[2016-07-15 05:57] LABS: BASOPHILS 0 %; EOSINOPHILS 0 %; HEMATOCRIT 21.2 % (40.0-51.0); IMMATURE GRANULOCYTES 0.6 %; IMMATURE GRANULOCYTES ABSOLUTE 0.05 10/3/uL (0.0-0.11); LYMPHOCYTES 5.3 %; LYMPHOCYTES ABSOLUTE 0.47 10/3/uL (0.67-4.30); MEAN CORPUS HGB CONC 30.7 g/dL (32.0-36.0); MEAN CORPUSCULAR VOLUME 94.6 fL (80-100); MEAN PLATELET VOLUME 8.7 fL (9.2-13.0); MONOCYTES ABSOLUTE 0.18 10/3/uL (0.21-1.20); NEUTROPHILS 92.1 %; NEUTROPHILS ABSOLUTE 8.24 10/3/uL (2.02-8.40); PLATELET COUNT 204 10/3/uL (150-400); RBC DISTRIBUTION WIDTH 16.3 % (12.0-16.0); RED CELL COUNT 2.24 10/6/uL (4.7-6.1)
[2016-07-15 05:58] LABS: HEMOGLOBIN 6.5 g/dL (13.6-17.8); WHITE BLOOD CELLS 8.9 10/3/uL (4.5-10.5)
[2016-07-15 06:00] LABS: MANUAL DIFF NO %
[2016-07-16 12:39] LABS: ALLENS TEST Pos; BE (BASE EXCESS) 10.2 MEQ/L (0 +/- 2.5); CARBOXYHEMOGLOBIN 0.3 % (0-3); DEVICE NC; HCO3 (ACTUAL BICARBONATE) 35.6 MEQ/L (23-27); INSTRUMENT SERIAL # 35151; METHEMOGLOBIN 1.1 % (0-3); O2 CONTENT 11.5 VOL% (18-24); OPERATOR ID 32199; PCO2 (CO2 TENSION) 55 MMHG (35-45); PO2 (O2 TENSION) 209 MMHG (79-93); SAMPLE Arterial; pH 7.43 (7.37-7.43)
[2016-07-16 13:05] LABS: ALLENS TEST Pos; BE (BASE EXCESS) 12.6 MEQ/L (0 +/- 2.5); CARBOXYHEMOGLOBIN 0.3 % (0-3); DEVICE HFNC; HCO3 (ACTUAL BICARBONATE) 38.8 MEQ/L (23-27); HEMOBLOGIN CONTENT 8.2 G/DL (14-18); INSTRUMENT SERIAL # 35151; O2 CONTENT 11.9 VOL% (18-24); OPERATOR ID 35798; PCO2 (CO2 TENSION) 62 MMHG (35-45); PO2 (O2 TENSION) 245 MMHG (79-93); SAMPLE Arterial; pH 7.42 (7.37-7.43)
[2016-07-17 06:15] LABS: BASOPHILS 0 %; EOSINOPHILS 0.5 %; EOSINOPHILS ABSOLUTE 0.04 10/3/uL (0.0-0.53); HEMOGLOBIN 7.2 g/dL (13.6-17.8); IMMATURE GRANULOCYTES 0.9 %; IMMATURE GRANULOCYTES ABSOLUTE 0.07 10/3/uL (0.0-0.11); LYMPHOCYTES 23.9 %; LYMPHOCYTES ABSOLUTE 1.92 10/3/uL (0.67-4.30); MEAN CORPUS HGB CONC 31.3 g/dL (32.0-36.0); MEAN CORPUSCULAR HEMOGLOB 28.9 pg (26.0-34.0); MEAN CORPUSCULAR VOLUME 92.4 fL (80-100); MEAN PLATELET VOLUME 9.2 fL (9.2-13.0); MONOCYTES ABSOLUTE 0.48 10/3/uL (0.21-1.20); NEUTROPHILS 68.7 %; NEUTROPHILS ABSOLUTE 5.51 10/3/uL (2.02-8.40); PLATELET COUNT 206 10/3/uL (150-400); RBC DISTRIBUTION WIDTH 16.8 % (12.0-16.0); RED CELL COUNT 2.49 10/6/uL (4.7-6.1)
[2016-07-17 06:16] LABS: MANUAL DIFF NO %
[2016-07-17 06:32] LABS: A/G RATIO 0.8 (0.7-1.9); BUN (BLOOD UREA NITROGEN) 25 MG/DL (6-23); CALCIUM, SERUM 7.9 MG/DL (8.5-10.4); CHLORIDE, SERUM 102 MMOL/L (96-112); CO2 (CARBON DIOXIDE) 35 MMOL/L (24-34); CREATININE 0.46 MG/DL (0.70-1.30); GFR AFRICAN AMERICAN 124 ML/MIN (>=60); GFR NON AFRICAN AMERICAN 107 ML/MIN (>=60); GLOBULIN 2.5 G/DL (2.5-4.1); POTASSIUM, SERUM 4.2 MMOL/L (3.5-5.3); SGOT(AST) 15 U/L (5-40); SGPT(ALT) 25 U/L (5-65); SODIUM, SERUM 142 MMOL/L (135-148); TOTAL BILIRUBIN 0.3 MG/DL (0-1.2); TOTAL PROTEIN 4.5 G/DL (6.0-8.5)
[2016-07-17 06:34] LABS: ALKALINE PHOSPHATASE 49 U/L (45-117); GLUCOSE, SERUM 75 MG/DL (60-99)
== END 2016-07-17 17:35 | disposition hospice, home (50) | DRG 291 ==
LOC: ER 05:17 → 7NO 09:29
PROVIDERS: Emergency Medicine; Hospitalist
PROC: 5A09457 Assistance with Respiratory Ventilation, 24-96 Consecutive Hours, Continuous Positive Airway Pressure (ICD-10-PCS; principal; 2016-07-14)
PROC: 30233N1 Transfusion of Nonautologous Red Blood Cells into Peripheral Vein, Percutaneous Approach (ICD-10-PCS; 2016-07-15)
DX: I11.0 Hypertensive heart disease with heart failure (principal); J96.22 Acute and chronic respiratory failure with hypercapnia; J96.21 Acute and chronic respiratory failure with hypoxia; I48.2 Chronic atrial fibrillation; J44.1 Chronic obstructive pulmonary disease with (acute) exacerbation; I50.43 Acute on chronic combined systolic (congestive) and diastolic (congestive) heart failure; D63.8 Anemia in other chronic diseases classified elsewhere; F17.210 Nicotine dependence, cigarettes, uncomplicated; Z87.440 Personal history of urinary (tract) infections; Z51.5 Encounter for palliative care
CPT/HCPCS: 36415; 36430; 36600; 71010; 80048; 80053; 82805; 82962; 83605; 83735; 83880; 84145; 84484; 85025; 85610; 85730; 86850; 86900; 86901; 86920; 87040; 93005; 93971; 94640; 94660; 99285; A9270-GY; J0456; J2930; P9016